=== PATIENT | male | born 1970 | race Caucasian/White ===

== ENCOUNTER 2016-12-01 19:06 | Inpatient (IN) | payer SELFPAY ==
[2016-12-01] VITALS (7 sets, daily range): BP systolic 113–144; BP diastolic 71–87; PULSE 66–86; RESP 18–20; TEMP 98.3–98.9; O2SAT 97–98
[~2016-12-01] VITALS: Ht 172.7 cm; Wt 74.4 kg
[~2016-12-01 19:06] MED LIST: METH40TA PO; PROM25TA5 PO
[2016-12-01] MEDS ORDERED: FDGARD (19:46)
[2016-12-01] MEDS ORDERED: CLON1 PO (19:46)
[2016-12-01] MEDS ORDERED: SODIUM CHLORIDE 0.9% FLUSH 5 ML FLUSH IVF PRN ×2 (20:00→23:45)
[2016-12-01] MEDS ORDERED: SODIUM CHLOR 0.9% 1000 ML INJ 1,000 ML IV SCH (20:00)
[2016-12-01] MEDS ORDERED: PANTOPRAZOLE SODIUM 40 MG VIAL IVP ONE (20:00)
[2016-12-01] MEDS ORDERED: ONDANSETRON HCL 4 MG/2 ML VIAL IVP ONE (20:00)
--- NOTE | 2016-12-01 20:11 | PD ---
HPI Chief Complaint: GI Complaint Time Seen by Provider: 20:00 Travel History International Travel<30 days: No Contact w/Intl Traveler<30days: No Traveled to known affect area: No History of Present Illness HPI 46-year-old male presents to the emergency department by private transportation for complaint of abdominal pain with nausea and vomiting and occasional diarrhea 3 days. Patient's had some objective fever and chills. Patient's had intermittent shortness of breath. Patient states she's been intolerant of oral intake with inability to eat or drink without vomiting. Patient estimates approximately 13 palate loss over the past 2 weeks. Patient's had similar issues on and off for the past one year and was last seen here September 2016. 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 Patient has been treated in the past partially 2 years ago for C. difficile infection. Patient denies alcohol use or tobacco use. Abdominal pain as epigastric and right upper quadrant. PFSH Past Medical History Narrative Medical Colitis tobacco use substance use nursing notes reviewed Gastrointestinal Disorders: Yes GERD: Yes Musculoskeletal: Yes (BACK, LEFT SHOULDER PAIN) Immunizations Current: No Tetanus Vaccination: Unknown Influenza Vaccination: No Social History Alcohol Use: No Tobacco Use: Yes (11/16 PPD) Substance Use: Yes (HX PAIN PILL ABUSE, SMOKES MARIJUANA) Allergies-Medications (Allergen,Severity, Reaction): Coded Allergies: No Known Allergies (Unverified , 12/01/16) Reported Meds & Prescriptions Reported Meds & Active Scripts Active Reported [FDgard] Klonopin (Clonazepam) 1 Mg Tab 1 Mg PO BID Review of Systems Except as stated in HPI: all other systems reviewed are Neg Physical Exam Narrative GENERAL: Well-developed well-nourished male in no acute distress no respiratory distress SKIN: Warm and dry. HEAD: Normocephalic. EYES: No scleral icterus. No injection or drainage. NECK: Supple, trachea midline. No JVD or lymphadenopathy. CARDIOVASCULAR: Regular rate and rhythm without murmurs, gallops, or rubs. RESPIRATORY: Breath sounds equal bilaterally. No accessory muscle use. GASTROINTESTINAL: Abdomen soft, epigastric tenderness to direct palpation without guarding rebound or mass, nondistended. MUSCULOSKELETAL: No cyanosis, or edema. BACK: Nontender without obvious deformity. No CVA tenderness. Data Data Last Documented VS Vital Signs Date Time Temp Pulse Resp B/P Pulse Ox O2 Delivery O2 Flow Rate FiO2 12/01/16 23:05 68 20 113/73 97 Room Air 12/01/16 22:41 98.9 Orders Complete Blood Count With Diff (12/01/16 20:00) Comprehensive Metabolic Panel (12/01/16 20:00) Lipase (12/01/16 20:00) Urinalysis - C+S If Indicated (12/01/16 20:00) Ct Abd/Pel W Iv Contrast(Rout) (12/01/16 20:00) Iv Access Insert/Monitor (12/01/16 20:00) Ecg Monitoring (12/01/16 20:00) Oximetry (12/01/16 20:00) Ondansetron Inj (Zofran Inj) (12/01/16 20:00) Pantoprazole Inj (Protonix Inj) (12/01/16 20:00) Sodium Chlor 0.9% 1000 Ml Inj (Ns 1000 M (12/01/16 20:00) Sodium Chloride 0.9% Flush (Ns Flush) (12/01/16 20:00) Chest, Single Ap (12/01/16 20:00) NPO (12/01/16 20:00) Troponin I (12/01/16 20:00) Oral Contrast - Adult (12/01/16 20:07) Diatrizoate Liq ( Gastroview Liq) (12/01/16 20:27) Sodium Chlor 0.9% 1000 Ml Inj (Ns 1000 M (12/01/16 21:00) Ondansetron Inj (Zofran Inj) (12/01/16 21:00) Morphine Inj (Morphine Inj) (12/01/16 21:00) Electrocardiogram (12/01/16 19:36) Iohexol 350 Inj (Omnipaque 350 Inj) (12/01/16 22:18) Admit To Inpatient (12/01/16 ) Vital Signs (Adult) Q4H (12/01/16 23:30) Activity Oob Ad Belinda (12/01/16 23:30) Intake + Output ANIYA.QSHIFT (12/01/16 23:30) Diet Npo (12/02/16 Breakfast) Sodium Chlor 0.9% 1000 Ml Inj (Ns 1000 M (12/01/16 23:30) Sodium Chloride 0.9% Flush (Ns Flush) (12/01/16 23:30) Sodium Chloride 0.9% Flush (Ns Flush) (12/02/16 09:00) Ondansetron Inj (Zofran Inj) (12/01/16 23:30) Temazepam (Restoril) (12/01/16 23:30) Comprehensive Metabolic Panel (12/02/16 06:00) Complete Blood Count With Diff (12/02/16 06:00) Scd Bilateral/Knee High ANIYA.BID (12/01/16 23:30) Naloxone Inj (Narcan Inj) (12/01/16 23:30) Consult Gastroenterology (12/01/16 23:34) Admit Order (Ed Use Only) (12/01/16 ) ^ Saline Lock (12/01/16 23:35) Resp Oxygen Greg C Titrat 1-4 L (12/01/16 ) ^ Notify Dr: Other (12/01/16 23:35) Sodium Chloride 0.9% Flush (Ns Flush) (12/02/16 09:00) Sodium Chloride 0.9% Flush (Ns Flush) (12/01/16 23:45) Labs Laboratory Tests Test 12/01/16 20:05 White Blood Count 11.6 TH/MM3 Red Blood Count 5.09 MIL/MM3 Hemoglobin 15.1 GM/DL Hematocrit 44.8 % Mean Corpuscular Volume 87.9 FL Mean Corpuscular Hemoglobin 29.7 PG Mean Corpuscular Hemoglobin 33.8 % Concent Red Cell Distribution Width 12.2 % Platelet Count 200 TH/MM3 Mean Platelet Volume 9.7 FL Neutrophils (%) (Auto) 69.9 % Lymphocytes (%) (Auto) 19.8 % Monocytes (%) (Auto) 9.1 % Eosinophils (%) (Auto) 0.4 % Basophils (%) (Auto) 0.8 % Neutrophils # (Auto) 8.1 TH/MM3 Lymphocytes # (Auto) 2.3 TH/MM3 Monocytes # (Auto) 1.1 TH/MM3 Eosinophils # (Auto) 0.0 TH/MM3 Basophils # (Auto) 0.1 TH/MM3 CBC Comment DIFF FINAL Differential Comment Urine Color YELLOW Urine Turbidity CLEAR Urine pH 6.0 Urine Specific [place] 1.010 Urine Protein NEG mg/dL Urine Glucose (UA) NEG mg/dL Urine Ketones NEG mg/dL Urine Occult Blood TRACE Urine Nitrite NEG Urine Bilirubin NEG Urine Leukocyte Esterase NEG Urine RBC 3-5 /hpf Urine WBC 0-2 /hpf Urine Squamous Epithelial 0-5 /hpf Cells Urine Bacteria NONE /hpf Microscopic Urinalysis Comment CULT NOT INDICATED Sodium Level 140 MEQ/L Potassium Level 3.8 MEQ/L Chloride Level 103 MEQ/L Carbon Dioxide Level 29.9 MEQ/L Anion Gap 7 MEQ/L Blood Urea Nitrogen 15 MG/DL Creatinine 0.75 MG/DL Estimat Glomerular Filtration 113 ML/MIN Rate Random Glucose 96 MG/DL Calcium Level 8.8 MG/DL Total Bilirubin 0.7 MG/DL Aspartate Amino Transf 25 U/L (AST/SGOT) Alanine Aminotransferase 47 U/L (ALT/SGPT) Alkaline Phosphatase 108 U/L Troponin I LESS THAN 0.02 NG/ML Total Protein 7.4 GM/DL Albumin 3.6 GM/DL Lipase 96 U/L [facility] Medical Decision Making Medical Screen Exam Complete: Yes Emergency Medical Condition: Yes Medical Record Reviewed: Yes Interpretation(s) EKG: Normal sinus rhythm rate 83 left axis deviation no acute ST elevation injury pattern or ectopy noted Laboratory Tests Test 12/01/16 20:05 White Blood Count 11.6 TH/MM3 Red Blood Count 5.09 MIL/MM3 Hemoglobin 15.1 GM/DL Hematocrit 44.8 % Mean Corpuscular Volume 87.9 FL Mean Corpuscular Hemoglobin 29.7 PG Mean Corpuscular Hemoglobin 33.8 % Concent Red Cell Distribution Width 12.2 % Platelet Count 200 TH/MM3 Mean Platelet Volume 9.7 FL Neutrophils (%) (Auto) 69.9 % Lymphocytes (%) (Auto) 19.8 % Monocytes (%) (Auto) 9.1 % Eosinophils (%) (Auto) 0.4 % Basophils (%) (Auto) 0.8 % Neutrophils # (Auto) 8.1 TH/MM3 Lymphocytes # (Auto) 2.3 TH/MM3 Monocytes # (Auto) 1.1 TH/MM3 Eosinophils # (Auto) 0.0 TH/MM3 Basophils # (Auto) 0.1 TH/MM3 CBC Comment DIFF FINAL Differential Comment Urine Color YELLOW Urine Turbidity CLEAR Urine pH 6.0 Urine Specific [place] 1.010 Urine Protein NEG mg/dL Urine Glucose (UA) NEG mg/dL Urine Ketones NEG mg/dL Urine Occult Blood TRACE Urine Nitrite NEG Urine Bilirubin NEG Urine Leukocyte Esterase NEG Urine RBC 3-5 /hpf Urine WBC 0-2 /hpf Urine Squamous Epithelial 0-5 /hpf Cells Urine Bacteria NONE /hpf Microscopic Urinalysis Comment CULT NOT INDICATED Sodium Level 140 MEQ/L Potassium Level 3.8 MEQ/L Chloride Level 103 MEQ/L Carbon Dioxide Level 29.9 MEQ/L Anion Gap 7 MEQ/L Blood Urea Nitrogen 15 MG/DL Creatinine 0.75 MG/DL Estimat Glomerular Filtration 113 ML/MIN Rate Random Glucose 96 MG/DL Calcium Level 8.8 MG/DL Total Bilirubin 0.7 MG/DL Aspartate Amino Transf 25 U/L (AST/SGOT) Alanine Aminotransferase 47 U/L (ALT/SGPT) Alkaline Phosphatase 108 U/L Troponin I LESS THAN 0.02 NG/ML Total Protein 7.4 GM/DL Albumin 3.6 GM/DL Lipase 96 U/L Last Impressions Chest X-Ray 12/01/161999 Signed Impressions: Service Date/Time: November 20:13 - CONCLUSION: No evidence of acute cardiopulmonary disease. Vik Bartlett MD Abdomen/Pelvis CT 12/01/161999 Signed Impressions: Service Date/Time: November 22:05 - CONCLUSION: 1. Distended common bile duct and with questionable stones in the distal duct and also in the gallbladder. The nothing by CT to suggest acute cholecystitis. Right upper quadrant ultrasound recommended. 2. No other acute abnormality demonstrated. Vik Bartlett MD Differential Diagnosis Abdominal pain peptic ulcer disease biliary colic choledocholithiasis pancreatitis colitis esophageal spasm esophageal stricture malignancy ACS Narrative Course IV access obtained specimens collected and sent for resulting Patient administered IV fluids IV Zofran and IV Protonix Patient continues to complain of nausea with dry heaves and abdominal pain additional Zofran IV fluids administered as well as morphine 2 mg IV Patient resting comfortably waiting for imaging results; labs all normal; patient's abdomen was tender CT abdomen and pelvis is remarkable for dilated common duct with concern for retained stone patient has normal lab values but patient has had ongoing symptoms since at least September with estimated 13 pound weight loss in the past 2 weeks due to inability to tolerate by mouth intake secondary to exacerbation of pain and vomiting. Patient's case discussed with on-call GI recommends patient be transferred to [facility] to medicine service with plan for possible ERCP in a.m. case discussed with on-call [facility] Bonny Peng except for admission patient is aware of plan and is agreeable to be transferred to [facility] Physician Communication Physician Communication discussed with Dr Steward --admit to medicine with GI consult for ERCP; discussed with [facility] service, Dr Mcnamara accepts for admission to [facility] Diagnosis Primary Impression: Choledocholithiasis Soniya Valverde MD Dec 01, 2016 20:11
[2016-12-01 20:19] LABS: BLOOD, URINE TRACE (NEG); GLUCOSE,URINE NEG (NEG); KETONE, URINE NEG (NEG); NITRITE,URINE NEG (NEG)
[2016-12-01 20:20] LABS: AUTOMATED NEUTROPHIL # 8.1 TH/MM3 (1.8-7.7); BASOPHIL # 0.1 TH/MM3 (0-0.2); BASOPHIL % 0.8 % (0.0-2.0); EOSINOPHIL % 0.4 % (0.0-4.0); HEMATOCRIT 44.8 % (39.0-51.0); HEMO FLAGS DIFF FINAL; LYMPH % 19.8 % (9.0-44.0); LYMPHOCYTE # 2.3 TH/MM3 (1.0-4.8); MEAN CELL VOLUME 87.9 FL (80.0-100.0); MEAN CORPUSCULAR HEMOGLOBIN 29.7 PG (27.0-34.0); MEAN CORPUSCULAR HGB CONC 33.8 % (32.0-36.0); MONO % 9.1 % (0.0-8.0); NEUT % 69.9 % (16.0-70.0); PLATELET COUNT 200 TH/MM3 (150-450); RED BLOOD COUNT 5.09 MIL/MM3 (4.50-5.90); RED CELL DISTRIBUTION WIDTH 12.2 % (11.6-17.2); WHITE BLOOD COUNT 11.6 TH/MM3 (4.0-11.0)
[2016-12-01 20:24] LABS: COMMENT (UR) CULT NOT INDICATED; CULTURE IF INDICATED CULT NOT INDICATED; SQUAMOUS EPITHELIAL CELL URINE 0-5 /hpf (0-5); URINE COLOR YELLOW (YELLW/STRAW); WBC, URINE 0-2 /hpf (0-5)
[2016-12-01] MEDS ORDERED: DIATRIZOATE MEGLUM/DIATRIZOATE SOD 9 ML CUP ONE (20:27)
[2016-12-01 20:28] LABS: CHLORIDE 103 MEQ/L (98-107); POTASSIUM 3.8 MEQ/L (3.5-5.1); SODIUM (NA) 140 MEQ/L (136-145)
[2016-12-01 20:32] LABS: ANION GAP 7 MEQ/L (5-15); BICARBONATE 29.9 MEQ/L (21.0-32.0); BLOOD UREA NITROGEN 15 MG/DL (7-18)
[2016-12-01 20:34] LABS: ALT (GPT) 47 U/L (12-78); AST (GOT) 25 U/L (15-37)
[2016-12-01 20:35] LABS: GLOMERULAR FILTRATION RATE 113 ML/MIN (>89)
[2016-12-01 20:36] LABS: TOTAL BILIRUBIN ADULT 0.7 MG/DL (0.2-1.0)
[2016-12-01 20:37] LABS: ALKALINE PHOSPHATASE 108 U/L (45-117)
--- NOTE | 2016-12-01 20:37 | RADHPO ---
EXAM DATE/TIME: 12/01/2016 20:13 [facility] COMPARISON: No previous studies available for comparison. INDICATIONS : Patient states chest tightness. MEDICAL HISTORY : None. SURGICAL HISTORY : None. ENCOUNTER: Initial ACUITY: 1 day PAIN SCORE: 4/10 LOCATION: Bilateral chest FINDINGS: A single view of the chest demonstrates the lungs to be symmetrically aerated without evidence of mas s, infiltrate or effusion. The cardiomediastinal contours are unremarkable. Osseous structures are intact. CONCLUSION: No evidence of acute cardiopulmonary disease. Vik Bartlett MD on December 01, 2016 at 20:35 Board Certified Radiologist. This report was verified electronically.
[2016-12-01] MEDS ORDERED: MORPHINE SULFATE 4 MG/ML INJ IV PUSH ONE (21:00)
[2016-12-01] MEDS ORDERED: SODIUM CHLOR 0.9% 1000 ML INJ 1,000 ML IV ONE (21:00)
[2016-12-01] MEDS ORDERED: ONDANSETRON HCL 4 MG/2 ML VIAL IV PUSH ONE (21:00)
[2016-12-01] MEDS ORDERED: IOHEXOL 350 MG/ML 10 ML VIAL (for RAD DIAG) IV ONE (22:18)
--- NOTE | 2016-12-01 22:40 | RADHPO ---
EXAM DATE/TIME: 12/01/2016 22:05 [facility] COMPARISON: No previous studies available for comparison. INDICATIONS : Epigastric and right upper quadrant pain. IV CONTRAST: 100 cc Omnipaque 350 (iohexol) IV ORAL CONTRAST: Prescribed oral contrast ingested. RADIATION DOSE: 8.16 CTDIvol (mGy) MEDICAL HISTORY : Gastroesophageal reflux disease. SURGICAL HISTORY : None. ENCOUNTER: Initial ACUITY: 3 days PAIN SCALE: 8/10 LOCATION: Right upper quadrant TECHNIQUE: Volumetric scanning of the abdomen and pelvis was performed. Using automated exposure control and ad justment of the mA and/or kV according to patient size, radiation dose was kept as low as reasonably achievable to obtain optimal diagnostic quality images. FINDINGS: Slightly increased density seen in the gallbladder near the neck. Prominent caliber common bile duct, measures about 13 mm just proximal to the pancreatic head and roughly 9 mm within the pancreatic hea d. There is questionable increased density within the duct just upstream of the ampulla, series 2 jeremiah ge [id number]. This may represent a distal duct stone. I don't see intrahepatic biliary distention. Liver is slightly fatty infiltrated without a focal hepatic lesion. Spleen, pancreas, adrenal glands and kidneys are are acutely within normal limits. Small cysts in bot h kidneys. No obstruction or acute inflammatory changes are seen of the GI tract. No lymphadenopathy. No free fluid. The appendix is well-visualized, normal. CONCLUSION: 1. Distended common bile duct and with questionable stones in the distal duct and also in the gallbla dder. The nothing by CT to suggest acute cholecystitis. Right upper quadrant ultrasound recommended. 2. No other acute abnormality demonstrated. Vik Bartlett MD on December 01, 2016 at 22:34 Board Certified Radiologist. This report was verified electronically.
[2016-12-01] MEDS: SODIUM CHLOR 0.9% 1000 ML INJ 1,000 ML IV SCH (23:30)
[2016-12-01] MEDS ORDERED: TEMAZEPAM 15 MG CAP PO PRN (23:30)
[2016-12-01] MEDS ORDERED: NALOXONE HCL 0.4 MG/ML AMP IV PRN (23:30)
[2016-12-02] VITALS (7 sets, daily range): BP systolic 109–174; BP diastolic 64–88; PULSE 52–68; RESP 16–21; TEMP 97.4–98.9; O2SAT 93–98
[2016-12-02] MEDS: ONDANSETRON HCL 4 MG/2 ML VIAL IVP PRN ×3 (05:13→20:26)
[2016-12-02] MEDS: SODIUM CHLOR 0.9% 1000 ML INJ 1,000 ML IV SCH ×2 (05:18→19:30)
[2016-12-02] MEDS ORDERED: MORPHINE SULFATE 4 MG/ML INJ IV PUSH PRN (06:15)
[2016-12-02] MEDS ORDERED: HYDROmorphone HCL PF 1 MG/ML VIAL IV PUSH PRN (08:00)
--- NOTE | 2016-12-02 08:05 | HHI.HP ---
[facility] No Primary Care Physician Admission Diagnosis choledocholithiasis Diagnoses: (1) Choledocholithiasis Diagnosis: Principal (2) Abdominal pain Diagnosis: Principal Chief Complaint: abdominal pain Travel History International Travel<30 Days: No Contact w/Intl Traveler <30 Da: No Traveled to Known Affected Are: No History of Present Illness patient is a 46 y/o male with history of colitis in the past presented to ER with abdominal pain. he says that he's had this pain for the past few months. pain is more or less generalized . he says that the pain started to get worse few days ago. pain is associated with nausea and vomiting. he says that he had some fever and chills at home. the pain didn't improve as much with the Morphine that he earlier received. Review of Systems Constitutional: COMPLAINS OF: Fever, Chills, Night Sweats, DENIES: Weight loss Eyes: DENIES: Blurred vision, Diplopia, Vision loss, Double Vision Ears, nose, mouth, throat: DENIES: Tinnitus, Vertigo, Throat pain, Epistaxis Respiratory: DENIES: Apneas, Cough, Snoring, Wheezing, Hemoptysis, Sputum production, Shortness of breath Cardiovascular: DENIES: Chest pain, Palpitations, Syncope, Dyspnea on Exertion , PND, Lower Extremity Edema, Orthopnea, Claudication Gastrointestinal: COMPLAINS OF: Abdominal pain, Nausea, Vomiting, DENIES: Black stools, Bloody stools, Constipation, Diarrhea, Difficulty Swallowing, Anorexia Genitourinary: DENIES: Urinary frequency, Urgency, Hematuria, Dysuria Musculoskeletal: DENIES: Joint pain, Muscle aches, Stiffness, Joint Swelling Integumentary: DENIES: Rash Neurologic: DENIES: Abnormal gait, Headache, Localized weakness, Paresthesias, Seizures, Speech Problems, Tremor, Poor Balance Psychiatric: DENIES: Anxiety, Confusion, Mood changes, Depression, Hallucinations, Agitation, Suicidal Ideation, Homicidal Ideation, Delusions Past Family Social History Past Medical History colitis Past Surgical History surgery on the right leg. Reported Medications Klonopin Allergies: Coded Allergies: No Known Allergies (Unverified , 12/02/16) Active Ordered Medications Current Medications Ondansetron HCl (Zofran Inj) 4 mg ONCE ONCE IVP Last administered on 20:19; Start 12/01/16 at 20:00; Stop 12/01/16 at 20:04; Status DC Pantoprazole Sodium 40 mg 40 mg ONCE ONCE IVP Last administered on 12/01/16 20:19; Start 12/01/16 at 20:00; Stop 12/01/16 at 20:04; Status DC Sodium Chloride (NS 1000 ml Inj) 1,000 ml @ 125 mls/hr Q8H IV Last administered on 12/01/16 20:19; Start 12/01/16 at 20:00; Stop 12/02/16 at 03:59 ; Status DC IV Flush (NS Flush) 2 ml UNSCH PRN IVF FLUSH AFTER USING IV ACCESS; Start 12/01 at 20:00; Stop 12/01/16 at 23:37; Status DC Diatrizoate Meglum/ Diatrizoate Sod 18 ml 18 ml STK-MED ONCE .ROUTE Last administered on 12/01/16 20:44; Start 12/01/16 at 20:27; Stop 12/01/16 at 20:28 ; Status DC Sodium Chloride (NS 1000 ml Inj) 1,000 ml @ 999 mls/hr BOLUS ONCE IV Last administered on 12/01/16 21:00; Start 12/01/16 at 21:00; Stop 12/01/16 at 22:00 ; Status DC Ondansetron HCl (Zofran Inj) 4 mg ONCE ONCE IV PUSH Last administered on 21:05; Start 12/01/16 at 21:00; Stop 12/01/16 at 21:01; Status DC Morphine Sulfate (Morphine Inj) 2 mg ONCE ONCE IV PUSH Last administered on 21:05; Start 12/01/16 at 21:00; Stop 12/01/16 at 21:01; Status DC Iohexol 100 ml 100 ml STK-MED ONCE IV Last administered on 12/01/16 22:18; Start 12/01/16 at 22:18; Stop 12/01/16 at 22:19; Status DC Sodium Chloride (NS 1000 ml Inj) 1,000 ml @ 100 mls/hr Q10H IV Last administered on 12/02/16 05:18; Start 12/01/16 at 23:30 IV Flush (NS Flush) 2 ml UNSCH PRN FLUSH FLUSH AFTER USING IV ACCESS; Start at 23:30 IV Flush (NS Flush) 2 ml BID FLUSH ; Start 12/02/16 at 09:00 Ondansetron HCl (Zofran Inj) 4 mg Q6H PRN IVP NAUSEA OR VOMITING Last administered on 12/02/16 05:13; Start 12/01/16 at 23:30 Temazepam (Restoril) 15 mg HS PRN PO INSOMNIA Last administered on 12/01/16 23 :53; Start 12/01/16 at 23:30 Naloxone HCl (Narcan Inj) 0.4 mg UNSCH PRN IV SEE LABEL COMMENTS; Start at 23:30 IV Flush (NS Flush) 2 ml BID IVF ; Start 12/02/16 at 09:00; Stop 12/02/16 at 09: 00; Status DC IV Flush (NS Flush) 2 ml UNSCH PRN IVF FLUSH AFTER USING IV ACCESS; Start 12/01 at 23:45; Stop 12/01/16 at 23:58; Status DC Morphine Sulfate (Morphine Inj) 2 mg Q3H PRN IV PUSH PAIN GREATER THAN 5 Last administered on 12/02/16 06:15; Start 12/02/16 at 06:15 Family History stroke in mother/ heart attack in father. Social History smokes marijuana and cigarettes- doesn't drink. Physical Exam Vital Signs Vital Signs Date Time Temp Pulse Resp B/P Pulse Ox O2 Delivery O2 Flow Rate FiO2 12/02/16 06:18 12 12/02/16 01:48 98.7 57 21 109/75 93 12/02/16 01:14 98.9 113 20 119/64 98 12/02/16 01:00 64 12/01/16 23:05 68 20 113/73 97 Room Air 12/01/16 22:41 98.9 12/01/16 21:44 66 20 129/76 98 12/01/16 21:10 20 12/01/16 20:44 68 20 141/71 98 12/01/16 20:00 70 20 144/75 97 12/01/16 19:50 20 12/01/16 19:42 84 20 144/75 97 12/01/16 19:38 12/01/16 19:23 98.3 86 18 123/87 97 Room Air Physical Exam GENERAL: This is a well-nourished, well-developed patient, in no apparent distress. SKIN: No rashes, ecchymoses or lesions. Cool and dry. HEAD: Atraumatic. Normocephalic. No temporal or scalp tenderness. EYES: Pupils equal round and reactive. Extraocular motions intact. No scleral icterus. No injection or drainage. ENT: Nose without bleeding, purulent drainage or septal hematoma. Throat without erythema, tonsillar hypertrophy or exudate. Uvula midline. Airway patent. NECK: Trachea midline. No JVD or lymphadenopathy. Supple, nontender, no meningeal signs. CARDIOVASCULAR: Regular rate and rhythm without murmurs, gallops, or rubs. RESPIRATORY: Clear to auscultation. Breath sounds equal bilaterally. No wheezes , rales, or rhonchi. GASTROINTESTINAL: Abdomen soft, mild generalized tenderness, nondistended. No hepato-splenomegaly, or palpable masses. No guarding. MUSCULOSKELETAL: Extremities without clubbing, cyanosis, or edema. No joint tenderness, effusion, or edema noted. No calf tenderness. Negative Homans sign bilaterally. NEUROLOGICAL: Awake and alert. Cranial nerves II through XII intact. Motor and sensory grossly within normal limits. Five out of 5 muscle strength in all muscle groups. Normal speech. Laboratory Laboratory Tests Test 12/01/16 20:05 White Blood Count 11.6 Red Blood Count 5.09 Hemoglobin 15.1 Hematocrit 44.8 Mean Corpuscular Volume 87.9 Mean Corpuscular Hemoglobin 29.7 Mean Corpuscular Hemoglobin 33.8 Concent Red Cell Distribution Width 12.2 Platelet Count 200 Mean Platelet Volume 9.7 Neutrophils (%) (Auto) 69.9 Lymphocytes (%) (Auto) 19.8 Monocytes (%) (Auto) 9.1 Eosinophils (%) (Auto) 0.4 Basophils (%) (Auto) 0.8 Neutrophils # (Auto) 8.1 Lymphocytes # (Auto) 2.3 Monocytes # (Auto) 1.1 Eosinophils # (Auto) 0.0 Basophils # (Auto) 0.1 CBC Comment DIFF FINAL Differential Comment Urine Color YELLOW Urine Turbidity CLEAR Urine pH 6.0 Urine Specific [place] 1.010 Urine Protein NEG Urine Glucose (UA) NEG Urine Ketones NEG Urine Occult Blood TRACE Urine Nitrite NEG Urine Bilirubin NEG Urine Leukocyte Esterase NEG Urine RBC 3-5 Urine WBC 0-2 Urine Squamous Epithelial 0-5 Cells Urine Bacteria NONE Microscopic Urinalysis Comment CULT NOT INDICATED Sodium Level 140 Potassium Level 3.8 Chloride Level 103 Carbon Dioxide Level 29.9 Anion Gap 7 Blood Urea Nitrogen 15 Creatinine 0.75 Estimat Glomerular Filtration 113 Rate Random Glucose 96 Calcium Level 8.8 Total Bilirubin 0.7 Aspartate Amino Transf 25 (AST/SGOT) Alanine Aminotransferase 47 (ALT/SGPT) Alkaline Phosphatase 108 Troponin I LESS THAN 0.02 Total Protein 7.4 Albumin 3.6 Lipase 96 Result Diagram: 12/01/16200412/01/162004 Imaging Last Impressions Chest X-Ray 12/01/161999 Signed Impressions: Service Date/Time: November 20:13 - CONCLUSION: No evidence of acute cardiopulmonary disease. Vik Bartlett MD Abdomen/Pelvis CT 12/01/161999 Signed Impressions: Service Date/Time: November 22:05 - CONCLUSION: 1. Distended common bile duct and with questionable stones in the distal duct and also in the gallbladder. The nothing by CT to suggest acute cholecystitis. Right upper quadrant ultrasound recommended. 2. No other acute abnormality demonstrated. Vik Bartlett MD Assessment and Plan Assessment and Plan A/P - possible choledocholithiasis NPO for now and continue with IV fluid, pain control and antiemetics- will check GB sonogram- GI consulted. Discussed Condition With the patient and RN. Physician Certification 2 Midnight Certification Type: Admission for Inpatient Services Order for Inpatient Services The services are ordered in accordance with Medicare regulations or non- Medicare payer requirements, as applicable. In the case of services not specified as inpatient-only, they are appropriately provided as inpatient services in accordance with the 2-midnight benchmark. Estimated LOS (days): 2 days is the estimated time the patient will need to remain in the hospital, assuming treatment plan goals are met and no additional complications. Post-Hospital Plan: Home Problem Qualifiers (1) Abdominal pain: Qualified Code: R10.84 - Generalized abdominal pain Matteo Ramos MD Dec 02, 2016 08:05
[2016-12-02] MEDS ORDERED: SODIUM CHLORIDE 0.9% FLUSH 5 ML FLUSH IVF SCH (09:00)
[2016-12-02] MEDS ORDERED: HYDROmorphone HCL PF 1 MG/ML VIAL IV PUSH ONE (09:00)
--- NOTE | 2016-12-02 09:09 | PD.CONS ---
HPI History of Present Illness This is a 46 year old male patient who came to the ER for evaluation of abdominal pain. He reports that he has been having epigastric pain, odynophagia , reflux for the past year and this has progressively been getting worse over the past 5 months. He reports that over the past 5 months, whenever he goes to initially eat or drink anything, the food and liquids will get stuck in his lower esophagus/epigastric area and he will have a burning pain when he swallows. He will have to take several swallows and then the food will pass and he will be able to eat and drink without difficulty. He has frequent reflux and belching, but denies any heartburn. He has been taking Pepto-Bismol , Zantac, Imodium, Mylanta without results. He reports the only thing that has helped is FD Guard. He has lost 17 lbs over the past 3 weeks. He denies any jaundice/fever/chills. He reports that he recently had a formed black stool followed by 2 loose stools with brown stool mixed with black stool, but states he was taking Pepto-Bismol at the time. (Demetria Humphries) PFSH Past Medical History Pilonidal cyst Past Surgical History Pilonidal cyst excision (Demetria Humphries) Coded Allergies: No Known Allergies (Unverified , 12/02/16) Medications Allergies Coded Allergies Type Severity Reaction Last Updated Verified No Known Allergies 12/02/16 No Active Scripts Medications Dose Route/Sig Days Date Category [FDgard] 12/01/16 Reported Klonopin (Clonazepam) 1 Mg Tab 1 Mg PO BID 12/01/16 Reported Family History MGM breast cancer, lived unitl 80's Mother had CVA, 64 Dad from [place] 60 Social History Smokes < 1ppd Marijuana use (Demetria Humphries) Review of Systems Constitutional: COMPLAINS OF: Weight loss, DENIES: Fatigue, Fever, Chills Respiratory: COMPLAINS OF: Cough, DENIES: Shortness of breath Cardiovascular: DENIES: Chest pain Gastrointestinal: COMPLAINS OF: Abdominal pain, Black stools, Vomiting, Odynophagia, DENIES: Constipation, Diarrhea, Nausea, Heartburn (belching, odynodphagia) Musculoskeletal: DENIES: Joint pain, Back pain Hematologic/lymphatic: DENIES: Bruising Neurologic: DENIES: Headache Psychiatric: DENIES: Confusion (Demetria Humphries FOREIGN) GI Exam Vitals I&O Vital Signs Date Time Temp Pulse Resp B/P Pulse Ox O2 Delivery O2 Flow Rate FiO2 12/02/16 06:18 12 12/02/16 04:00 98.0 68 21 126/76 98 12/02/16 01:48 98.7 57 21 109/75 93 12/02/16 01:14 98.9 113 20 119/64 98 12/02/16 01:00 64 12/01/16 23:05 68 20 113/73 97 Room Air 12/01/16 22:41 98.9 12/01/16 21:44 66 20 129/76 98 12/01/16 21:10 20 12/01/16 20:44 68 20 141/71 98 12/01/16 20:00 70 20 144/75 97 12/01/16 19:50 20 12/01/16 19:42 84 20 144/75 97 12/01/16 19:38 12/01/16 19:23 98.3 86 18 123/87 97 Room Air I/O 12/01/16 12/01/16 12/01/16 12/02/16 12/02/16 12/02/16 07:00 15:00 23:00 07:00 15:00 23:00 Intake Total 1800 ml Output Total 700 ml Balance 1100 ml Intake IV Total 1800 ml Output Urine Total 700 ml # Voids 2 Imaging Last Impressions Chest X-Ray 12/01/161999 Signed Impressions: Service Date/Time: November 20:13 - CONCLUSION: No evidence of acute cardiopulmonary disease. Vik Bartlett MD Abdomen/Pelvis CT 12/01/161999 Signed Impressions: Service Date/Time: November 22:05 - CONCLUSION: 1. Distended common bile duct and with questionable stones in the distal duct and also in the gallbladder. The nothing by CT to suggest acute cholecystitis. Right upper quadrant ultrasound recommended. 2. No other acute abnormality demonstrated. Vik Bartlett MD Laboratory Test 12/01/16 20:05 White Blood Count 11.6 TH/MM3 Red Blood Count 5.09 MIL/MM3 Hemoglobin 15.1 GM/DL Hematocrit 44.8 % Mean Corpuscular Volume 87.9 FL Mean Corpuscular Hemoglobin 29.7 PG Mean Corpuscular Hemoglobin 33.8 % Concent Red Cell Distribution Width 12.2 % Platelet Count 200 TH/MM3 Mean Platelet Volume 9.7 FL Neutrophils (%) (Auto) 69.9 % Lymphocytes (%) (Auto) 19.8 % Monocytes (%) (Auto) 9.1 % Eosinophils (%) (Auto) 0.4 % Basophils (%) (Auto) 0.8 % Neutrophils # (Auto) 8.1 TH/MM3 Lymphocytes # (Auto) 2.3 TH/MM3 Monocytes # (Auto) 1.1 TH/MM3 Eosinophils # (Auto) 0.0 TH/MM3 Basophils # (Auto) 0.1 TH/MM3 CBC Comment DIFF FINAL Differential Comment Urine Color YELLOW Urine Turbidity CLEAR Urine pH 6.0 Urine Specific [place] 1.010 Urine Protein NEG mg/dL Urine Glucose (UA) NEG mg/dL Urine Ketones NEG mg/dL Urine Occult Blood TRACE Urine Nitrite NEG Urine Bilirubin NEG Urine Leukocyte Esterase NEG Urine RBC 3-5 /hpf Urine WBC 0-2 /hpf Urine Squamous Epithelial 0-5 /hpf Cells Urine Bacteria NONE /hpf Microscopic Urinalysis Comment CULT NOT INDICATED Sodium Level 140 MEQ/L Potassium Level 3.8 MEQ/L Chloride Level 103 MEQ/L Carbon Dioxide Level 29.9 MEQ/L Anion Gap 7 MEQ/L Blood Urea Nitrogen 15 MG/DL Creatinine 0.75 MG/DL Estimat Glomerular Filtration 113 ML/MIN Rate Random Glucose 96 MG/DL Calcium Level 8.8 MG/DL Total Bilirubin 0.7 MG/DL Aspartate Amino Transf 25 U/L (AST/SGOT) Alanine Aminotransferase 47 U/L (ALT/SGPT) Alkaline Phosphatase 108 U/L Troponin I LESS THAN 0.02 NG/ML Total Protein 7.4 GM/DL Albumin 3.6 GM/DL Lipase 96 U/L Physical Examination HEENT: Normocephalic; atraumatic; no jaundice. Throat is clear. NECK: Neck is supple, no JVD, no lymphadenopathy. CHEST: CTA CARDIAC: RRR ABDOMEN: Soft, nondistended, nontender; no hepatosplenomegaly; bowel sounds are present in all four quadrants. EXTREMITIES: No clubbing, cyanosis, or edema. SKIN: Normal; no rash; no jaundice. [facility]NA HOSPICE: No focal deficits; alert and oriented times three. (Demetria Humphries) Assessment and Plan Plan ASSESSMENT: - Cholelithiasis, Suspected Choledocholithiasis. Abdomen/Pelvis CT (12/01/16)--- --> 1. Distended common bile duct and with questionable stones in the distal duct and also in the gallbladder. The nothing by CT to suggest acute cholecystitis. Right upper quadrant ultrasound recommended. 2. No other acute abnormality demonstrated. RUQ US report pending, but CBD 9mm with stone in CBD per tech. Labs unremarkable. Will schedule for ERCP with possible sphincterotomy, possible stent placement today. - Epigastric pain, dysphagia, odynophagia. Symptoms x 1 year, worse over 5 months. C/O severe epigastric/lower esophageal pain and food/liquids getting caught with initial bite/swallow, states after this, he is able to eat without issues. Happens every time he goes to eat. Also with frequent epigastric burning, belching. Has tried Pepto-Bismol, Zantac, Imodium, Mylanta without results. He reports the only thing that has helped is FD Guard. - Abnormal weight loss, 14 lb weight loss over the past 3 months - Black stool. States he had a FORMED black stool followed by 2 loose brown stools mixed with black stool. He was taking Pepto-Bismol at that time. PLAN: - Plan for ercp with possible sphincterotomy, possible stent placement this am - Obtain consents - NPO - Protonix 40mg IV BID - CBC, CMP today - LFT in am - Supportive care - Further recommendations to follow based on results of above - Pt seen and examined by Dr. Ro and myself and this note is written on his behalf (Demetria Humphries) Physician Comments Seen and examined with Ms. Kristel CARRASQUILLO, reviewed U/s And CT reports. Suggestive of cbd stone, Lfts are normal. ERCP today. Surgical consultation. Thank you ( Darleen Ro MD) Demetria Humphries Dec 02, 2016 09:09 Darleen Ro MD Dec 02, 2016 16:20
--- NOTE | 2016-12-02 09:13 | RADRPT ---
EXAM DATE/TIME: 12/02/2016 08:23 [facility] COMPARISON: No previous studies available for comparison. INDICATIONS : Right upper quadrant pain. Evaluate common bile duct. MEDICAL HISTORY : Gastroesophageal reflux disease. Abdominal pain. Nausea. Vomiting. Substance use. SURGICAL HISTORY : Right leg surgery. ENCOUNTER: Initial ACUITY: 4-6 months PAIN SCORE: 8/10 LOCATION: Right upper quadrant MEASUREMENTS: LIVER: 15.6 cm length COMMON DUCT: 9 mm RIGHT KIDNEY: 12.2 x 5.7 x 4.8 cm FINDINGS: LIVER: The liver is echogenic without ductal dilatation. COMMON DUCT: Common duct isn't dilated to 9 mm. GALLBLADDER: Normal debris is present in the gallbladder without gallstones. PANCREAS: Obscured by bowel gas. RIGHT KIDNEY: 1 cm cyst right kidney. CONCLUSION: Debris in the gallbladder with dilated common duct. PT and Armaan Roman MD FACR on December 02, 2016 at 9:04 Board Certified Radiologist. This report was verified electronically.
[2016-12-02] MEDS: clonazePAM 1 MG TAB PO SCH ×2 (09:22→20:26)
[2016-12-02] MEDS: PANTOPRAZOLE SODIUM 40 MG VIAL IV PUSH SCH ×2 (09:29→20:26)
[2016-12-02] MEDS: SODIUM CHLORIDE 0.9% FLUSH 5 ML FLUSH FLUSH SCH ×2 (09:30→20:27)
[2016-12-02 09:46] LABS: AUTOMATED NEUTROPHIL # 6.3 TH/MM3 (1.8-7.7); BASOPHIL % 0.3 % (0.0-2.0); EOSINOPHIL % 0.4 % (0.0-4.0); HEMO FLAGS DIFF FINAL; LYMPH % 23.8 % (9.0-44.0); LYMPHOCYTE # 2.2 TH/MM3 (1.0-4.8); MEAN CELL VOLUME 88.8 FL (80.0-100.0); MEAN CORPUSCULAR HEMOGLOBIN 30.1 PG (27.0-34.0); MONO % 7.8 % (0.0-8.0); NEUT % 67.7 % (16.0-70.0); PLATELET COUNT 178 TH/MM3 (150-450); RED BLOOD COUNT 4.84 MIL/MM3 (4.50-5.90); WHITE BLOOD COUNT 9.3 TH/MM3 (4.0-11.0)
[2016-12-02 10:09] LABS: ALKALINE PHOSPHATASE 97 U/L (45-117); ALT (GPT) 43 U/L (12-78); ANION GAP 6 MEQ/L (5-15); AST (GOT) 22 U/L (15-37); BICARBONATE 29.2 MEQ/L (21.0-32.0); BLOOD UREA NITROGEN 11 MG/DL (7-18); CHLORIDE 106 MEQ/L (98-107); GLOMERULAR FILTRATION RATE 102 ML/MIN (>89); POTASSIUM 4.3 MEQ/L (3.5-5.1); SODIUM (NA) 141 MEQ/L (136-145); TOTAL BILIRUBIN ADULT 0.8 MG/DL (0.2-1.0)
[2016-12-02] MEDS ORDERED: PROPOFOL 200 MG/20 ML AMP IV ONE (12:23)
[2016-12-02] MEDS ORDERED: IOHEXOL 300 MG/ML 100 ML BTL (for Rad CT) OTHER ONE (12:25)
[2016-12-02] MEDS ORDERED: DO NOT ADM ANY ANTICOAGULANT DRUGS XX PRN (12:49)
[2016-12-02] MEDS ORDERED: *HYDROmorphone PF 1 MG VIAL PERIprocedural Use ONLY ONE (13:11)
--- NOTE | 2016-12-02 14:26 | RADRPT ---
EXAM DATE/TIME: 12/02/2016 12:33 [facility] COMPARISON: No previous studies available for comparison. INDICATIONS : Epigastric and right upper quadrant pain, possible obstruction. FLUORO TIME: 1.3 minutes IMAGE COUNT: 2 CONTRAST: Instilled by Ordering Physician MEDICAL HISTORY : Gastroesophageal reflux disease. SURGICAL HISTORY : None. ENCOUNTER: Subsequent ACUITY: 2 days PAIN SCORE: Non-responsive. LOCATION: Abdomen. FINDINGS: An ERCP was performed by the ordering physician. The images demonstrate a dilated common bile duct but no stones are identified. CONCLUSION: ERCP as above. Emanuel Hall MD on December 02, 2016 at 14:23 Board Certified Radiologist. This report was verified electronically.
[2016-12-02] MEDS: HYDROmorphone HCL PF 1 MG/ML VIAL IV PUSH PRN ×3 (16:40→23:45)
--- NOTE | 2016-12-02 17:03 | PD.CAR.PN ---
CVT Progress Note Subjective/Hospital Course: Patient seen full consult dictated Thanks J Objective: Vital Signs Date Time Temp Pulse Resp B/P Pulse Ox O2 Delivery O2 Flow Rate FiO2 12/02/16 13:16 98.0 53 16 148/95 96 Room Air 12/02/16 13:00 54 12 167/108 96 12/02/16 13:00 97.4 52 18 174/88 96 12/02/16 12:48 98.0 67 12 127/83 98 Nasal Cannula 2 12/02/16 11:00 97.5 57 19 119/72 96 12/02/16 10:19 16 12/02/16 06:18 12 12/02/16 04:00 98.0 68 21 126/76 98 12/02/16 01:48 98.7 57 21 109/75 93 12/02/16 01:14 98.9 113 20 119/64 98 12/02/16 01:00 64 12/01/16 23:05 68 20 113/73 97 Room Air 12/01/16 22:41 98.9 12/01/16 21:44 66 20 129/76 98 12/01/16 21:10 20 12/01/16 20:44 68 20 141/71 98 12/01/16 20:00 70 20 144/75 97 12/01/16 19:50 20 12/01/16 19:42 84 20 144/75 97 12/01/16 19:38 12/01/16 19:23 98.3 86 18 123/87 97 Room Air Labs: Laboratory Tests Test 12/02/16 09:14 White Blood Count 9.3 TH/MM3 (4.0-11.0) Red Blood Count 4.84 MIL/MM3 (4.50-5.90) Hemoglobin 14.6 GM/DL (13.0-17.0) Hematocrit 43.0 % (39.0-51.0) Mean Corpuscular Volume 88.8 FL (80.0-100.0) Mean Corpuscular Hemoglobin 30.1 PG (27.0-34.0) Mean Corpuscular Hemoglobin 34.0 % Concent (32.0-36.0) Red Cell Distribution Width 13.0 % (11.6-17.2) Platelet Count 178 TH/MM3 (150-450) Mean Platelet Volume 9.8 FL (7.0-11.0) Neutrophils (%) (Auto) 67.7 % (16.0-70.0) Lymphocytes (%) (Auto) 23.8 % (9.0-44.0) Monocytes (%) (Auto) 7.8 % (0.0-8.0) Eosinophils (%) (Auto) 0.4 % (0.0-4.0) Basophils (%) (Auto) 0.3 % (0.0-2.0) Neutrophils # (Auto) 6.3 TH/MM3 (1.8-7.7) Lymphocytes # (Auto) 2.2 TH/MM3 (1.0-4.8) Monocytes # (Auto) 0.7 TH/MM3 (0-0.9) Eosinophils # (Auto) 0.0 TH/MM3 (0-0.4) Basophils # (Auto) 0.0 TH/MM3 (0-0.2) CBC Comment DIFF FINAL Differential Comment Sodium Level 141 MEQ/L (136-145) Potassium Level 4.3 MEQ/L (3.5-5.1) Chloride Level 106 MEQ/L (98-107) Carbon Dioxide Level 29.2 MEQ/L (21.0-32.0) Anion Gap 6 MEQ/L (5-15) Blood Urea Nitrogen 11 MG/DL (7-18) Creatinine 0.82 MG/DL (0.60-1.30) Estimat Glomerular Filtration 102 ML/MIN Rate (>89) Random Glucose 99 MG/DL (74-106) Calcium Level 8.4 MG/DL (8.5-10.1) Total Bilirubin 0.8 MG/DL (0.2-1.0) Aspartate Amino Transf 22 U/L (15-37) (AST/SGOT) Alanine Aminotransferase 43 U/L (12-78) (ALT/SGPT) Alkaline Phosphatase 97 U/L (45-117) Total Protein 6.5 GM/DL (6.4-8.2) Albumin 3.5 GM/DL (3.4-5.0) Result Diagram: 12/02/16 0914 12/02/16 0914 Lalitha Amaral MD Dec 02, 2016 17:03
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
--- NOTE | 2016-12-02 21:30 | MB ---
cc: LALITHA HUI MD DATE OF CONSULTATION: 12/02/2016. REASON FOR CONSULTATION: Right upper quadrant pain, colicky pain, some fever and chills, belching and reflux. HISTORY OF PRESENT ILLNESS: This 46-year-old male presented to the emergency room with few months of abdominal pain. The patient states it is generalized, more so in the upper quadrants and no associated nausea or vomiting. The patient had some chills and fever at home and this did not improve. The patient states he is belching a lot and having reflux. He also states that food is sticking in his throat. The question arises as to the nature of his symptoms and possible cholecystitis or cholelithiasis causing this. PAST SURGICAL HISTORY: His past surgical history is that of a knee surgery. PAST MEDICAL HISTORY: Some sort of a colitis. MEDICATIONS: The patient is on: 1. Methadone. 2. Gabapentin. SOCIAL HISTORY: The patient smokes a pack a day and smokes pot. No drinking. The patient states that in the past he was addicted to narcotics and went to the methadone clinic. PHYSICAL EXAMINATION: GENERAL: The physical examination reveals a 46-year-old male in no acute distress. HEAD, EYES, EARS, NOSE, THROAT: Normocephalic. No trauma to the head. Pupils equal and reactive. Extraocular muscles intact. NECK: Bilateral carotid pulses. No bruits. CHEST: Bilateral breath sounds. HEART: Regular rhythm. ABDOMEN: Soft. Active bowel sounds. When I examined the patient, there was no rebound, no guarding, no masses, no tenderness. GROINS: His groins are normal. EXTREMITIES: Within normal limits with good proximal and distal pulses. No vascular deficit. BACK: Back is normal. NEUROLOGIC EXAMINATION: The patient is alert, oriented and intact. The patient appears to be somewhat hyper, speaking very rapidly and having very short attention span but otherwise doing okay. RECOMMENDATIONS: I reviewed laboratory and diagnostic procedures. The patient has had a battery of studies including ultrasound which showed perhaps some sludge. The abdomen and pelvis CT essentially looks normal except for the dilated common bile duct to about 13 mm and some sludge in the gallbladder. ERCP performed in the radiology department was negative. 1. Based on the above history and physical findings, I would be hard pressed to tell the patient he has a recurrent biliary colic. This may be more of a GI upset from other reasons; however, looking at the ultrasound and the CT scan, the patient indeed has common bile duct dilatation, yet the ERCP did not reveal any obstruction either by calculi or any mass. The patient could have very small stones and sludge that is slowly descending through the common duct and causing problems, so it is not inconceivable to recommend laparoscopic cholecystectomy at this point. In addition, the patient will get a HIDA scan. 2. As far as the patient's swallowing problem, clearly he will need an upper endoscopy to evaluate the integrity of the esophagus. The majority of patients with these symptoms have either slight dysphagia due to some neurologic problem, but most of the time it is continuous and frequent gastroesophageal reflux that causes inflammatory changes in the esophagus and mucosal and epithelial changes that will lead either to replacement with columnar epithelium in the form of an early Foreman's esophagus or simply fibrous strictures. All of these will lead to dysphagia and a feeling of food sticking in the esophagus. Clearly, less common but more serious could be malignancies of the esophagus. Therefore the patient definitely needs upper endoscopy and biopsies prior to doing any other surgery because if any of this is positive, then the gallbladder may be put on the back burner. At this point, I have ordered the HIDA scan and I will await results of the upper endoscopy and then will have a full picture to decide what to do with this gentleman. Thank you very much for the referral. I will continue to follow the patient. Lalitha CANO /4:57 PM /9:18 PM
--- NOTE | 2016-12-02 22:42 | EKG ---
Date Performed: 12/02/2016 Time Performed: 01:44:49 PTAGE: 46 years EKG: Sinus rhythm MARKED LEFT AXIS DEVIATION ABNORMAL ECG PREVIOUS TRACING : 12/01/2016 19.36 DOCTOR: Geena Brown Interpretating Date/Time 12/02/2016 22:40:21
--- NOTE | 2016-12-02 22:48 | EKG ---
Date Performed: 12/01/2016 Time Performed: 19:36:28 PTAGE: 46 years EKG: Sinus rhythm . Left axis deviation Abnormal ECG NO PREVIOUS TRACING DOCTOR: Geena Brown Interpretating Date/Time 12/02/2016 22:44:50
[2016-12-03] MEDS: ONDANSETRON HCL 4 MG/2 ML VIAL IVP PRN ×2 (02:31→14:30)
[2016-12-03] MEDS: HYDROmorphone HCL PF 1 MG/ML VIAL IV PUSH PRN ×5 (02:31→21:54)
[2016-12-03 04:00] VITALS: BP 109/69; PULSE 57; RESP 18; TEMP 98.5; O2SAT 95
[2016-12-03] MEDS: SODIUM CHLOR 0.9% 1000 ML INJ 1,000 ML IV SCH ×2 (04:18→16:53)
[2016-12-03 05:26] LABS: INDIRECT BILIRUBIN 0.5 MG/DL (0.0-0.8); TOTAL BILIRUBIN ADULT 0.7 MG/DL (0.2-1.0)
[2016-12-03 07:55] VITALS: O2SAT 97
[2016-12-03 08:28] VITALS: BP 115/65; PULSE 70; RESP 18; TEMP 98; O2SAT 98
[2016-12-03] MEDS: clonazePAM 1 MG TAB PO SCH ×2 (08:58→21:09)
[2016-12-03] MEDS: PANTOPRAZOLE SODIUM 40 MG VIAL IV PUSH SCH ×2 (08:59→21:09)
[2016-12-03] MEDS: SODIUM CHLORIDE 0.9% FLUSH 5 ML FLUSH FLUSH SCH ×2 (09:00→21:09)
--- NOTE | 2016-12-03 09:12 | HHI.PR ---
Subjective Remarks looks and feels much more comfortable. abdominal pain has improved. no nausea/ vomiting today. d/w the RN. Objective Vitals Vital Signs Date Time Temp Pulse Resp B/P Pulse Ox O2 Delivery O2 Flow Rate FiO2 12/03/16 08:28 98.0 70 18 115/65 98 12/03/16 07:55 97 21 12/03/16 06:48 18 12/03/16 04:00 98.5 57 18 109/69 95 12/02/16 19:40 98.8 54 16 139/80 95 12/02/16 13:16 98.0 53 16 148/95 96 Room Air 12/02/16 13:00 54 12 167/108 96 12/02/16 13:00 97.4 52 18 174/88 96 12/02/16 12:48 98.0 67 12 127/83 98 Nasal Cannula 2 12/02/16 11:00 97.5 57 19 119/72 96 12/02/16 10:19 16 I/O 12/02/16 12/02/16 12/02/16 12/03/16 12/03/16 12/03/16 07:00 15:00 23:00 07:00 15:00 23:00 Intake Total 1800 ml Output Total 700 ml 1000 ml Balance 1100 ml -1000 ml Intake IV Total 1800 ml Output Urine Total 700 ml 1000 ml # Voids 2 # Bowel Movements 1 Result Diagram: 12/02/16 0914 12/02/16 0914 Imaging Last Impressions Gall Bladder Ultrasound 12/02/16 0000 Signed Impressions: Service Date/Time: Friday, December 02, 2016 08:23 - CONCLUSION: Debris in the gallbladder with dilated common duct. PT and Armaan Roman MD FACR GI Procedure 12/02/16 0000 Signed Impressions: Service Date/Time: Friday, December 02, 2016 12:33 - CONCLUSION: ERCP as above. Emanuel Hall MD Chest X-Ray 12/01/161999 Signed Impressions: Service Date/Time: November 20:13 - CONCLUSION: No evidence of acute cardiopulmonary disease. Vik Bartlett MD Abdomen/Pelvis CT 12/01/161999 Signed Impressions: Service Date/Time: November 22:05 - CONCLUSION: 1. Distended common bile duct and with questionable stones in the distal duct and also in the gallbladder. The nothing by CT to suggest acute cholecystitis. Right upper quadrant ultrasound recommended. 2. No other acute abnormality demonstrated. Vik Bartlett MD Objective Remarks GENERAL: This is a well-nourished, well-developed patient, in no apparent distress. CARDIOVASCULAR: Regular rate and regular rhythm without murmurs, gallops, or rubs. RESPIRATORY: Clear to auscultation. Breath sounds equal bilaterally. No wheezes , rales, or rhonchi. GASTROINTESTINAL: Abdomen soft, non-tender, nondistended. Normal, active bowel sounds MUSCULOSKELETAL: Extremities without clubbing, cyanosis, or edema. NEURO: Alert & Oriented x4 to person, place, time, situation. Moves all ext x4 Procedures ERCP Medications and IVs Current Medications Ondansetron HCl (Zofran Inj) 4 mg ONCE ONCE IVP Last administered on 20:19; Start 12/01/16 at 20:00; Stop 12/01/16 at 20:04; Status DC Pantoprazole Sodium 40 mg 40 mg ONCE ONCE IVP Last administered on 12/01/16 20:19; Start 12/01/16 at 20:00; Stop 12/01/16 at 20:04; Status DC Sodium Chloride (NS 1000 ml Inj) 1,000 ml @ 125 mls/hr Q8H IV Last administered on 12/01/16 20:19; Start 12/01/16 at 20:00; Stop 12/02/16 at 03:59 ; Status DC IV Flush (NS Flush) 2 ml UNSCH PRN IVF FLUSH AFTER USING IV ACCESS; Start 12/01 at 20:00; Stop 12/01/16 at 23:37; Status DC Diatrizoate Meglum/ Diatrizoate Sod 18 ml 18 ml STK-MED ONCE .ROUTE Last administered on 12/01/16 20:44; Start 12/01/16 at 20:27; Stop 12/01/16 at 20:28 ; Status DC Sodium Chloride (NS 1000 ml Inj) 1,000 ml @ 999 mls/hr BOLUS ONCE IV Last administered on 12/01/16 21:00; Start 12/01/16 at 21:00; Stop 12/01/16 at 22:00 ; Status DC Ondansetron HCl (Zofran Inj) 4 mg ONCE ONCE IV PUSH Last administered on 21:05; Start 12/01/16 at 21:00; Stop 12/01/16 at 21:01; Status DC Morphine Sulfate (Morphine Inj) 2 mg ONCE ONCE IV PUSH Last administered on 21:05; Start 12/01/16 at 21:00; Stop 12/01/16 at 21:01; Status DC Iohexol 100 ml 100 ml STK-MED ONCE IV Last administered on 12/01/16 22:18; Start 12/01/16 at 22:18; Stop 12/01/16 at 22:19; Status DC Sodium Chloride (NS 1000 ml Inj) 1,000 ml @ 100 mls/hr Q10H IV Last administered on 12/02/16 05:18; Start 12/01/16 at 23:30 IV Flush (NS Flush) 2 ml UNSCH PRN FLUSH FLUSH AFTER USING IV ACCESS; Start at 23:30 IV Flush (NS Flush) 2 ml BID FLUSH ; Start 12/02/16 at 09:00 Ondansetron HCl (Zofran Inj) 4 mg Q6H PRN IVP NAUSEA OR VOMITING Last administered on 12/03/16 02:31; Start 12/01/16 at 23:30 Temazepam (Restoril) 15 mg HS PRN PO INSOMNIA Last administered on 12/01/16 23 :53; Start 12/01/16 at 23:30 Naloxone HCl (Narcan Inj) 0.4 mg UNSCH PRN IV SEE LABEL COMMENTS; Start at 23:30 IV Flush (NS Flush) 2 ml BID IVF ; Start 12/02/16 at 09:00; Stop 12/02/16 at 09: 00; Status DC IV Flush (NS Flush) 2 ml UNSCH PRN IVF FLUSH AFTER USING IV ACCESS; Start 12/01 at 23:45; Stop 12/01/16 at 23:58; Status DC Morphine Sulfate (Morphine Inj) 2 mg Q3H PRN IV PUSH PAIN GREATER THAN 5 Last administered on 12/02/16 06:15; Start 12/02/16 at 06:15; Stop 12/02/16 at 07:58 ; Status DC Hydromorphone HCl (Dilaudid Pf Inj) 1 mg Q3HR PRN IV PUSH PAIN > 4; Start 12/02 at 08:00; Stop 12/02/16 at 08:08; Status DC Clonazepam (KlonoPIN) 1 mg BID PO Last administered on 12/02/16 20:26; Start 12/02/16 at 09:00 Hydromorphone HCl (Dilaudid Pf Inj) 1 mg Q3HR PRN IV PUSH PAIN > 4 Last administered on 12/03/16 05:32; Start 12/02/16 at 12:00 Hydromorphone HCl (Dilaudid Pf Inj) 0.5 mg ONCE ONCE IV PUSH Last administered on 12/02/16 09:21; Start 12/02/16 at 09:00; Stop 12/02/16 at 09:01 ; Status DC Pantoprazole Sodium (Protonix Inj) 40 mg Q12H IV PUSH Last administered on 12/02 20:26; Start 12/02/16 at 10:00 Hydromorphone HCl (*DILAUDID PF INJ PERIprocedural ONLY) 1 mg STK-MED ONCE .ROUTE Last administered on 12/02/16 13:13; Start 12/02/16 at 13:11; Stop at 13:12; Status DC Miscellaneous Information ALL NURSING DEPARTME... UNSCH PRN XX SEE LABEL COMMENTS; Start 12/02/16 at 12:49; Stop 12/03/16 at 12:48 Iohexol (OMNIPAQUE 300 INJ (Rad CT)) 100 ml STK-MED ONCE OTHER Last administered on 12/02/16 12:25; Start 12/02/16 at 12:25; Stop 12/02/16 at 13:56 ; Status DC Propofol (Diprivan 200 Mg/20 ml Inj) 500 mg STK-MED ONCE IV ; Start 12/02/16 at 12:23; Stop 12/02/16 at 14:00; Status DC A/P Assessment and Plan - abdominal pain with questionable choledocholithiasis s/p ERCP with normal biliary tree- HIDA pending- GI and surgery following. continue with pain control. Discharge Planning awaiting surgery recommendations. Matteo Ramos MD Dec 03, 2016 09:12
--- NOTE | 2016-12-03 11:29 | HHI.GIFU ---
Subjective Remarks Resting in bed. States he was requiring his pain meds last night, but feeling better today. Going for HIDA today per recommendations. (Demetria Humphries) Objective Vitals I&O Vital Signs Date Time Temp Pulse Resp B/P Pulse Ox O2 Delivery O2 Flow Rate FiO2 12/03/16 08:28 98.0 70 18 115/65 98 12/03/16 07:55 97 21 12/03/16 06:48 18 12/03/16 04:00 98.5 57 18 109/69 95 12/02/16 19:40 98.8 54 16 139/80 95 12/02/16 13:16 98.0 53 16 148/95 96 Room Air 12/02/16 13:00 54 12 167/108 96 12/02/16 13:00 97.4 52 18 174/88 96 12/02/16 12:48 98.0 67 12 127/83 98 Nasal Cannula 2 I/O 12/02/16 12/02/16 12/02/16 12/03/16 12/03/16 12/03/16 07:00 15:00 23:00 07:00 15:00 23:00 Intake Total 1800 ml Output Total 700 ml 1000 ml Balance 1100 ml -1000 ml Intake IV Total 1800 ml Output Urine Total 700 ml 1000 ml # Voids 2 # Bowel Movements 1 Laboratory Laboratory Tests Test 12/03/16 04:13 Total Bilirubin 0.7 Direct Bilirubin 0.2 Indirect Bilirubin 0.5 Aspartate Amino Transf 25 (AST/SGOT) Alanine Aminotransferase 48 (ALT/SGPT) Alkaline Phosphatase 88 Total Protein 6.1 Albumin 3.1 Imaging Last Impressions Gall Bladder Ultrasound 12/02/16 0000 Signed Impressions: Service Date/Time: Friday, December 02, 2016 08:23 - CONCLUSION: Debris in the gallbladder with dilated common duct. PT and Armaan Roman MD FACR GI Procedure 12/02/16 0000 Signed Impressions: Service Date/Time: Friday, December 02, 2016 12:33 - CONCLUSION: ERCP as above. Emanuel Hall MD Chest X-Ray 12/01/161999 Signed Impressions: Service Date/Time: November 20:13 - CONCLUSION: No evidence of acute cardiopulmonary disease. Vik Bartlett MD Abdomen/Pelvis CT 12/01/161999 Signed Impressions: Service Date/Time: November 22:05 - CONCLUSION: 1. Distended common bile duct and with questionable stones in the distal duct and also in the gallbladder. The nothing by CT to suggest acute cholecystitis. Right upper quadrant ultrasound recommended. 2. No other acute abnormality demonstrated. Vik Bartlett MD Physical Exam HEENT: Normocephalic; atraumatic; no jaundice. CHEST: CTA CARDIAC: RRR ABDOMEN: Soft, nondistended, nontender; no hepatosplenomegaly; bowel sounds are present in all four quadrants. EXTREMITIES: No clubbing, cyanosis, or edema. SKIN: Normal; no rash; no jaundice. PRODUCT MARKETING INTERN: No focal deficits; alert and oriented times three. (Demetria Humphries) Assessment and Plan Plan ASSESSMENT: - Cholelithiasis, Suspected Choledocholithiasis. Abdomen/Pelvis CT (12/01/16)--- --> 1. Distended common bile duct and with questionable stones in the distal duct and also in the gallbladder. The nothing by CT to suggest acute cholecystitis. Right upper quadrant ultrasound recommended. 2. No other acute abnormality demonstrated. RUQ US report pending, but CBD 9mm with stone in CBD per tech. Labs unremarkable. S/P ERCP (12/03/16)---> biliary tree appeared normal with no evidence of stones or filling defects. ? Passed stone. LFT okay. GS consulted for cholecystectomy---> ordered HIDA. - Epigastric pain, dysphagia, odynophagia. Symptoms x 1 year, worse over 5 months. C/O severe epigastric/lower esophageal pain and food/liquids getting caught with initial bite/swallow, states after this, he is able to eat without issues. Happens every time he goes to eat. Also with frequent epigastric burning, belching. Has tried Pepto-Bismol, Zantac, Imodium, Mylanta without results. He reports the only thing that has helped is FD Guard. ERCP unremarkable for EGD. PPI. Improved. - Abnormal weight loss, 14 lb weight loss over the past 3 months - Black stool. States he had a FORMED black stool followed by 2 loose brown stools mixed with black stool. He was taking Pepto-Bismol at that time. PLAN: - NPO for HIDA - Cont. PPI - GS consulted for lap. cholecystectomy - HIDA ordered by GS - okay for regular diet from gi standpoint once cleared by GS - Supportive care - Further recommendations to follow based on results of above - Pt seen and examined by Dr. Ro and myself and this note is written on his behalf (Demetria Humphries) Physician Comments Seen and examined with Ms. Kristel CARRASQUILLO, doing well. HIDA shows normal Gall bladder but delayed emptying from CBD. Ampulla was very tight on ERCP, sphincterotomy was performed. LFTs remain normal. Will hold off on repeat ercp unless obstructive symptoms occur. Advised to fu in gi clinic upon dc. ( Darleen Ro MD) Demetria Humphries Dec 03, 2016 11:29 Darleen Ro MD Dec 03, 2016 16:57
[2016-12-03 12:01] VITALS: BP 108/58; PULSE 50; RESP 20; TEMP 97.9; O2SAT 95
--- NOTE | 2016-12-03 13:04 | PD.CAR.PN ---
CVT Progress Note Subjective/Hospital Course: Patient seen full consult dictated Thanks J 12/03/16 1. Based on the history and physical findings, I would be hard pressed to tell the patient he has a recurrent biliary colic. This may be more of a GI upset from other reasons; however, looking at the ultrasound and the CT scan, the patient indeed has common bile duct dilatation, yet the ERCP did not reveal any obstruction either by calculi or any mass. The patient could have very small stones and sludge that is slowly descending through the common duct and causing problems, so it is not inconceivable to recommend laparoscopic cholecystectomy at this point. In addition, the patient will get a HIDA scan. 2. As far as the patient's swallowing problem, clearly he will need an upper endoscopy to evaluate the integrity of the esophagus. The majority of patients with these symptoms have either slight dysphagia due to some neurologic problem, but most of the time it is continuous and frequent gastroesophageal reflux that causes inflammatory changes in the esophagus and mucosal and epithelial changes that will lead either to replacement with columnar epithelium in the form of an early Foreman's esophagus or simply fibrous strictures. All of these will lead to dysphagia and a feeling of food sticking in the esophagus. Clearly, less common but more serious could be malignancies of the esophagus. Therefore the patient definitely needs upper endoscopy and biopsies prior to doing any other surgery because if any of this is positive, then the gallbladder may be put on the back burner. At this point, I have ordered the HIDA scan and I will await results of the upper endoscopy and then will have a full picture to decide what to do with this gentleman. Objective: Vital Signs Date Time Temp Pulse Resp B/P Pulse Ox O2 Delivery O2 Flow Rate FiO2 12/03/16 12:01 97.9 50 20 108/58 95 12/03/16 08:28 98.0 70 18 115/65 98 12/03/16 07:55 97 21 12/03/16 06:48 18 12/03/16 04:00 98.5 57 18 109/69 95 12/02/16 19:40 98.8 54 16 139/80 95 12/02/16 13:16 98.0 53 16 148/95 96 Room Air Labs: Laboratory Tests Test 12/03/16 04:13 Total Bilirubin 0.7 MG/DL (0.2-1.0) Direct Bilirubin 0.2 MG/DL (0.0-0.2) Indirect Bilirubin 0.5 MG/DL (0.0-0.8) Aspartate Amino Transf 25 U/L (15-37) (AST/SGOT) Alanine Aminotransferase 48 U/L (12-78) (ALT/SGPT) Alkaline Phosphatase 88 U/L (45-117) Total Protein 6.1 GM/DL (6.4-8.2) Albumin 3.1 GM/DL (3.4-5.0) Result Diagram: 12/02/16 0914 12/02/16 0914 Lalitha Amaral MD Dec 03, 2016 13:04
[2016-12-03] MEDS ORDERED: SINCALIDE 5 MCG/5 ML VIAL IV ONE (13:30)
--- NOTE | 2016-12-03 15:32 | RADRPT ---
EXAM DATE/TIME: 12/03/2016 12:22 [facility] COMPARISON: CT ABDOMEN & PELVIS W CONTRAST, December 01, 2016, 22:05. US ABDOMEN - GALLBLADDER, December 02, 2016, 8:23. GI LAB ERCP, December 02, 2016, 12:33. INDICATIONS : Abdominal epigastric pain for 5 months, has gotten worse over past few days. Presents with nausea , vomitting, fever and chills. DOSE: 4.1 mCi Tc99m Mebrofenin IV MEDICATION: 1.5 mcg Cholecystokinin IV; No symptomatic response. Cholecystokinin was administered by slow infusion over 8 minutes beginning at 60 minutes. MEDICAL HISTORY : Gastroesophageal reflux disease. SURGICAL HISTORY : None. ENCOUNTER: Initial ACUITY: 4 - 6 months PAIN SCALE: 5/10 LOCATION: Abdomen. TECHNIQUE: Following the intravenous administration of radiotracer, dynamic sequential image were performed with continuous acquisition. Time-activity curves were generated. FINDINGS: HEPATIIC KINETICS: There is prompt uptake of radiotracer in the liver. No focal defects are seen. There is normal rate of washout from the hepatic parenchyma. BILIARY CLEARANCE: Activity is first seen in the extrahepatic biliary system at 20 minutes. There is clearing minimal s mall bowel activity seen at the end of the study. GALLBLADDER: Activity is first seen in the gallbladder at 30 minutes. POST CHOLECYSTOKININ: After Cholecystokinin administration, no significant emptying of the gallbladder is seen. BILIARY ENTERIC REFLUX: None observed. CLINICAL: The patient was asymptomatic after Cholecystokinin administration. CONCLUSION: Very minimal activity extends in to the small bowel concerning for a high grade obstruction at the le khoa of the ampulla. In reviewing the patient's prior CT and ERCP, there is a question of stones in th e distal duct on the common bile duct on the CT examination. There could be stones packed in the dist al common bile duct on ERCP with contrast not delineated them in the very distal common bile duct. No contrast is seen in the small bowel on the ERCP. Vik Harvey MD on December 03, 2016 at 15:14 Board Certified Radiologist. This report was verified electronically.
[2016-12-03 16:33] VITALS: BP 170/95; PULSE 60; RESP 18; TEMP 97; O2SAT 96
[2016-12-03] MEDS ORDERED: HYDROmorphone HCL PF 1 MG/ML VIAL IV PUSH ONE (16:45)
[2016-12-03] MEDS: PROMETHAZINE INJ 25 MG/ML VIAL IM PRN (17:45)
[2016-12-03 20:03] VITALS: BP 109/59; PULSE 71; RESP 20; TEMP 97.7; O2SAT 94
[2016-12-04] VITALS: BP 106/48; PULSE 55; RESP 17; TEMP 97.2; O2SAT 98
[2016-12-04] MEDS: SODIUM CHLOR 0.9% 1000 ML INJ 1,000 ML IV SCH ×3 (01:14→22:54)
[2016-12-04] MEDS: ONDANSETRON HCL 4 MG/2 ML VIAL IVP PRN ×4 (02:01→20:36)
[2016-12-04] MEDS: HYDROmorphone HCL PF 1 MG/ML VIAL IV PUSH PRN ×7 (02:02→22:54)
[2016-12-04] MEDS: PROMETHAZINE INJ 25 MG/ML VIAL IM PRN (07:42)
[2016-12-04] MEDS: SODIUM CHLORIDE 0.9% FLUSH 5 ML FLUSH FLUSH SCH ×2 (07:42→20:47)
[2016-12-04 08:00] VITALS: BP 156/92; PULSE 67; RESP 18; TEMP 96.7; O2SAT 98
--- NOTE | 2016-12-04 08:42 | HHI.PR ---
Subjective Remarks in no distress. complaining of abdominal pain and nausea. no fever. d/w the RN. Objective Vitals Vital Signs Date Time Temp Pulse Resp B/P Pulse Ox O2 Delivery O2 Flow Rate FiO2 12/04/16 08:00 96.7 67 18 156/92 98 12/04/16 00:00 97.2 55 17 106/48 98 12/03/16 20:03 97.7 71 20 109/59 94 12/03/16 16:33 97.0 60 18 170/95 96 12/03/16 12:01 97.9 50 20 108/58 95 I/O 12/03/16 12/03/16 12/03/16 12/04/16 12/04/16 12/04/16 07:00 15:00 23:00 07:00 15:00 23:00 Intake Total 550 ml Output Total 1000 ml 50 ml Balance -1000 ml -50 ml 550 ml Intake Oral 0 ml IV Total 550 ml Output Urine Total 1000 ml Emesis 50 ml # Voids 2 # Bowel Movements 1 1 Result Diagram: 12/02/16 0914 12/02/16 0914 Imaging Last Impressions Hepatobiliary Scan Nuclear Medicine 12/03/16 0000 Signed Impressions: Service Date/Time: Saturday, December 03, 2016 12:22 - CONCLUSION: Very minimal activity extends in to the small bowel concerning for a high grade obstruction at the level of the ampulla. In reviewing the patient's prior CT and ERCP, there is a question of stones in the distal duct on the common bile duct on the CT examination. There could be stones packed in the distal common bile duct on ERCP with contrast not delineated them in the very distal common bile duct. No contrast is seen in the small bowel on the ERCP. Vik Harvey MD Gall Bladder Ultrasound 12/02/16 0000 Signed Impressions: Service Date/Time: Friday, December 02, 2016 08:23 - CONCLUSION: Debris in the gallbladder with dilated common duct. PT and Armaan Roman MD FACR GI Procedure 12/02/16 0000 Signed Impressions: Service Date/Time: Friday, December 02, 2016 12:33 - CONCLUSION: ERCP as above. Emanuel Hall MD Chest X-Ray 12/01/161999 Signed Impressions: Service Date/Time: November 20:13 - CONCLUSION: No evidence of acute cardiopulmonary disease. Vik Bartlett MD Abdomen/Pelvis CT 12/01/161999 Signed Impressions: Service Date/Time: November 22:05 - CONCLUSION: 1. Distended common bile duct and with questionable stones in the distal duct and also in the gallbladder. The nothing by CT to suggest acute cholecystitis. Right upper quadrant ultrasound recommended. 2. No other acute abnormality demonstrated. Vik Bartlett MD Objective Remarks GENERAL: This is a well-nourished, well-developed patient, in no apparent distress. CARDIOVASCULAR: Regular rate and regular rhythm without murmurs, gallops, or rubs. RESPIRATORY: Clear to auscultation. Breath sounds equal bilaterally. No wheezes , rales, or rhonchi. GASTROINTESTINAL: Abdomen soft, non-tender, nondistended. Normal, active bowel sounds MUSCULOSKELETAL: Extremities without clubbing, cyanosis, or edema. NEURO: Alert & Oriented x4 to person, place, time, situation. Moves all ext x4 Procedures ERCP Medications and IVs Current Medications Ondansetron HCl (Zofran Inj) 4 mg ONCE ONCE IVP Last administered on 20:19; Start 12/01/16 at 20:00; Stop 12/01/16 at 20:04; Status DC Pantoprazole Sodium 40 mg 40 mg ONCE ONCE IVP Last administered on 12/01/16 20:19; Start 12/01/16 at 20:00; Stop 12/01/16 at 20:04; Status DC Sodium Chloride (NS 1000 ml Inj) 1,000 ml @ 125 mls/hr Q8H IV Last administered on 12/01/16 20:19; Start 12/01/16 at 20:00; Stop 12/02/16 at 03:59 ; Status DC IV Flush (NS Flush) 2 ml UNSCH PRN IVF FLUSH AFTER USING IV ACCESS; Start 12/01 at 20:00; Stop 12/01/16 at 23:37; Status DC Diatrizoate Meglum/ Diatrizoate Sod 18 ml 18 ml STK-MED ONCE .ROUTE Last administered on 12/01/16 20:44; Start 12/01/16 at 20:27; Stop 12/01/16 at 20:28 ; Status DC Sodium Chloride (NS 1000 ml Inj) 1,000 ml @ 999 mls/hr BOLUS ONCE IV Last administered on 12/01/16 21:00; Start 12/01/16 at 21:00; Stop 12/01/16 at 22:00 ; Status DC Ondansetron HCl (Zofran Inj) 4 mg ONCE ONCE IV PUSH Last administered on 21:05; Start 12/01/16 at 21:00; Stop 12/01/16 at 21:01; Status DC Morphine Sulfate (Morphine Inj) 2 mg ONCE ONCE IV PUSH Last administered on 21:05; Start 12/01/16 at 21:00; Stop 12/01/16 at 21:01; Status DC Iohexol 100 ml 100 ml STK-MED ONCE IV Last administered on 12/01/16 22:18; Start 12/01/16 at 22:18; Stop 12/01/16 at 22:19; Status DC Sodium Chloride (NS 1000 ml Inj) 1,000 ml @ 100 mls/hr Q10H IV Last administered on 12/04/16 01:14; Start 12/01/16 at 23:30 IV Flush (NS Flush) 2 ml UNSCH PRN FLUSH FLUSH AFTER USING IV ACCESS; Start at 23:30 IV Flush (NS Flush) 2 ml BID FLUSH Last administered on 12/03/16 21:09; Start 12/02/16 at 09:00 Ondansetron HCl (Zofran Inj) 4 mg Q6H PRN IVP NAUSEA OR VOMITING Last administered on 12/04/16 06:47; Start 12/01/16 at 23:30 Temazepam (Restoril) 15 mg HS PRN PO INSOMNIA Last administered on 12/01/16 23 :53; Start 12/01/16 at 23:30 Naloxone HCl (Narcan Inj) 0.4 mg UNSCH PRN IV SEE LABEL COMMENTS; Start at 23:30 IV Flush (NS Flush) 2 ml BID IVF ; Start 12/02/16 at 09:00; Stop 12/02/16 at 09: 00; Status DC IV Flush (NS Flush) 2 ml UNSCH PRN IVF FLUSH AFTER USING IV ACCESS; Start 12/01 at 23:45; Stop 12/01/16 at 23:58; Status DC Morphine Sulfate (Morphine Inj) 2 mg Q3H PRN IV PUSH PAIN GREATER THAN 5 Last administered on 12/02/16 06:15; Start 12/02/16 at 06:15; Stop 12/02/16 at 07:58 ; Status DC Hydromorphone HCl (Dilaudid Pf Inj) 1 mg Q3HR PRN IV PUSH PAIN > 4; Start 12/02 at 08:00; Stop 12/02/16 at 08:08; Status DC Clonazepam (KlonoPIN) 1 mg BID PO Last administered on 12/03/16 21:09; Start 12/02/16 at 09:00 Hydromorphone HCl (Dilaudid Pf Inj) 1 mg Q3HR PRN IV PUSH PAIN > 4 Last administered on 12/04/16 06:47; Start 12/02/16 at 12:00 Hydromorphone HCl (Dilaudid Pf Inj) 0.5 mg ONCE ONCE IV PUSH Last administered on 12/02/16 09:21; Start 12/02/16 at 09:00; Stop 12/02/16 at 09:01 ; Status DC Pantoprazole Sodium (Protonix Inj) 40 mg Q12H IV PUSH Last administered on 12/03 21:09; Start 12/02/16 at 10:00 Hydromorphone HCl (*DILAUDID PF INJ PERIprocedural ONLY) 1 mg STK-MED ONCE .ROUTE Last administered on 12/02/16 13:13; Start 12/02/16 at 13:11; Stop at 13:12; Status DC Miscellaneous Information ALL NURSING DEPARTME... UNSCH PRN XX SEE LABEL COMMENTS; Start 12/02/16 at 12:49; Stop 12/03/16 at 12:48; Status DC Iohexol (OMNIPAQUE 300 INJ (Rad CT)) 100 ml STK-MED ONCE OTHER Last administered on 12/02/16 12:25; Start 12/02/16 at 12:25; Stop 12/02/16 at 13:56 ; Status DC Propofol (Diprivan 200 Mg/20 ml Inj) 500 mg STK-MED ONCE IV ; Start 12/02/16 at 12:23; Stop 12/02/16 at 14:00; Status DC Sincalide (Kinevac Inj) 1.5 mcg STK-MED ONCE IV Last administered on 12/03/16 13:30; Start 12/03/16 at 13:30; Stop 12/03/16 at 13:31; Status DC Hydromorphone HCl (Dilaudid Pf Inj) 0.5 mg NOW ONCE IV PUSH Last administered on 12/03/16 16:52; Start 12/03/16 at 16:45; Stop 12/03/16 at 16:46; Status DC Promethazine HCl (Phenergan Inj) 12.5 mg Q8H PRN IM NAUSEA Last administered on 12/04/16 07:42; Start 12/03/16 at 17:00 A/P Assessment and Plan - abdominal pain with questionable choledocholithiasis s/p ERCP with normal biliary tree- HIDA with possible high-grade obstruction at the level of ampulla. continue with pain control and antiemetics as needed. GI and surgery following. Discharge Planning when ok with surgery. f/u by GI as outpatient. Matteo Ramos MD Dec 04, 2016 08:42
[2016-12-04] MEDS: clonazePAM 1 MG TAB PO SCH ×2 (09:00→20:35)
[2016-12-04] MEDS: PANTOPRAZOLE SODIUM 40 MG VIAL IV PUSH SCH ×2 (09:08→20:35)
[2016-12-04] MEDS: SODIUM CHLORIDE 0.9% FLUSH 5 ML FLUSH FLUSH PRN ×4 (09:09→18:57)
[2016-12-04] MEDS: PROCHLORPERAZINE INJ 10 MG/2 ML VIAL IVS PRN (11:29)
[2016-12-04 12:00] VITALS: BP 159/96; PULSE 64; RESP 17; TEMP 98.1; O2SAT 100
--- NOTE | 2016-12-04 14:45 | PD.CAR.PN ---
CVT Progress Note Subjective/Hospital Course: Patient seen full consult dictated Thanks [place] 12/03/16 1. Based on the history and physical findings, I would be hard pressed to tell the patient he has a recurrent biliary colic. This may be more of a GI upset from other reasons; however, looking at the ultrasound and the CT scan, the patient indeed has common bile duct dilatation, yet the ERCP did not reveal any obstruction either by calculi or any mass. The patient could have very small stones and sludge that is slowly descending through the common duct and causing problems, so it is not inconceivable to recommend laparoscopic cholecystectomy at this point. In addition, the patient will get a HIDA scan. 2. As far as the patient's swallowing problem, clearly he will need an upper endoscopy to evaluate the integrity of the esophagus. The majority of patients with these symptoms have either slight dysphagia due to some neurologic problem, but most of the time it is continuous and frequent gastroesophageal reflux that causes inflammatory changes in the esophagus and mucosal and epithelial changes that will lead either to replacement with columnar epithelium in the form of an early Foreman's esophagus or simply fibrous strictures. All of these will lead to dysphagia and a feeling of food sticking in the esophagus. Clearly, less common but more serious could be malignancies of the esophagus. Therefore the patient definitely needs upper endoscopy and biopsies prior to doing any other surgery because if any of this is positive, then the gallbladder may be put on the back burner. At this point, I have ordered the HIDA scan and I will await results of the upper endoscopy and then will have a full picture to decide what to do with this gentleman. 12/04/16 I have discussed the care and the entire situation with coin machine supervisor At this point the patient does have dilated common bile duct and there is delayed excretion of tracer into the intestine on HIDA scan Gallbladder on the other hand appears to be normal with normal contractions and no gallstones It is conceivable that patient has some small stones or sludge packed into distal common duct but this is rather unlikely. 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 Therefore based on all the above I believe the best course of therapy is to perform sphincterotomy and see how the patient does At this point I do not have any indication to remove the gallbladder which appears to be normal and not containing any stones If patient should have symptoms in the future then we can reconsider may replacing a stent in the common duct and crossing the papilla and the same time doing laparoscopic cholecystectomy but that this time I do not see any reason to subject patient to laparoscopic cholecystectomy or any other surgery Objective: Vital Signs Date Time Temp Pulse Resp B/P Pulse Ox O2 Delivery O2 Flow Rate FiO2 12/04/16 12:43 16 12/04/16 12:00 98.1 64 17 159/96 100 12/04/16 08:00 96.7 67 18 156/92 98 12/04/16 00:00 97.2 55 17 106/48 98 12/03/16 20:03 97.7 71 20 109/59 94 12/03/16 16:33 97.0 60 18 170/95 96 Result Diagram: 12/02/16 0914 12/02/1614 Lalitha Amaral MD Dec 04, 2016 14:45
[2016-12-04 16:00] VITALS: BP 101/59; PULSE 62; RESP 17; TEMP 98.1; O2SAT 98
[2016-12-05] VITALS: BP 99/70; PULSE 55; RESP 20; TEMP 97.6; O2SAT 96
[2016-12-05] MEDS: HYDROmorphone HCL PF 1 MG/ML VIAL IV PUSH PRN ×4 (02:07→12:16)
[2016-12-05 04:00] VITALS: BP 105/60; PULSE 51; RESP 20; TEMP 97.7; O2SAT 95
[2016-12-05] MEDS: SODIUM CHLOR 0.9% 1000 ML INJ 1,000 ML IV SCH (04:45)
[2016-12-05] MEDS: PROCHLORPERAZINE INJ 10 MG/2 ML VIAL IVS PRN (06:03)
[2016-12-05 08:00] VITALS: BP 112/72; PULSE 57; RESP 16; TEMP 97.7; O2SAT 98
--- NOTE | 2016-12-05 09:04 | HHI.PR ---
Subjective Remarks has mild abdominal pain. nausea is much better today. Objective Vitals Vital Signs Date Time Temp Pulse Resp B/P Pulse Ox O2 Delivery O2 Flow Rate FiO2 12/05/16 08:00 97.7 57 16 112/72 98 12/05/16 04:00 97.7 51 20 105/60 95 12/05/16 03:12 16 12/05/16 00:00 97.6 55 20 99/70 96 12/04/16 16:00 98.1 62 17 101/59 98 12/04/16 12:00 98.1 64 17 159/96 100 I/O 12/04/16 12/04/16 12/04/16 12/05/16 12/05/16 12/05/16 07:00 15:00 23:00 07:00 15:00 23:00 Intake Total 550 ml 1671 ml 659 ml 0 ml Output Total 800 ml 250 ml Balance 550 ml 871 ml 409 ml 0 ml Intake Oral 0 ml 840 ml 240 ml 0 ml IV Total 550 ml 831 ml 419 ml Output Urine Total 800 ml 250 ml # Voids 2 1 # Bowel Movements 1 2 Result Diagram: 12/02/16 0914 12/02/16 0914 Imaging Last Impressions Hepatobiliary Scan Nuclear Medicine 12/03/16 0000 Signed Impressions: Service Date/Time: Saturday, December 03, 2016 12:22 - CONCLUSION: Very minimal activity extends in to the small bowel concerning for a high grade obstruction at the level of the ampulla. In reviewing the patient's prior CT and ERCP, there is a question of stones in the distal duct on the common bile duct on the CT examination. There could be stones packed in the distal common bile duct on ERCP with contrast not delineated them in the very distal common bile duct. No contrast is seen in the small bowel on the ERCP. Vik Harvey MD Gall Bladder Ultrasound 12/02/16 0000 Signed Impressions: Service Date/Time: Friday, December 02, 2016 08:23 - CONCLUSION: Debris in the gallbladder with dilated common duct. PT and Armaan Roman MD FACR GI Procedure 12/02/16 0000 Signed Impressions: Service Date/Time: Friday, December 02, 2016 12:33 - CONCLUSION: ERCP as above. Emanuel Hall MD Chest X-Ray 12/01/161999 Signed Impressions: Service Date/Time: November 20:13 - CONCLUSION: No evidence of acute cardiopulmonary disease. Vik Bartlett MD Abdomen/Pelvis CT 12/01/161999 Signed Impressions: Service Date/Time: November 22:05 - CONCLUSION: 1. Distended common bile duct and with questionable stones in the distal duct and also in the gallbladder. The nothing by CT to suggest acute cholecystitis. Right upper quadrant ultrasound recommended. 2. No other acute abnormality demonstrated. Vik Bartlett MD Objective Remarks GENERAL: This is a well-nourished, well-developed patient, in no apparent distress. CARDIOVASCULAR: Regular rate and regular rhythm without murmurs, gallops, or rubs. RESPIRATORY: Clear to auscultation. Breath sounds equal bilaterally. No wheezes , rales, or rhonchi. GASTROINTESTINAL: Abdomen soft, non-tender, nondistended. Normal, active bowel sounds MUSCULOSKELETAL: Extremities without clubbing, cyanosis, or edema. NEURO: Alert & Oriented x4 to person, place, time, situation. Moves all ext x4 Procedures ERCP Medications and IVs Current Medications Ondansetron HCl (Zofran Inj) 4 mg ONCE ONCE IVP Last administered on 20:19; Start 12/01/16 at 20:00; Stop 12/01/16 at 20:04; Status DC Pantoprazole Sodium 40 mg 40 mg ONCE ONCE IVP Last administered on 12/01/16 20:19; Start 12/01/16 at 20:00; Stop 12/01/16 at 20:04; Status DC Sodium Chloride (NS 1000 ml Inj) 1,000 ml @ 125 mls/hr Q8H IV Last administered on 12/01/16 20:19; Start 12/01/16 at 20:00; Stop 12/02/16 at 03:59 ; Status DC IV Flush (NS Flush) 2 ml UNSCH PRN IVF FLUSH AFTER USING IV ACCESS; Start 12/01 at 20:00; Stop 12/01/16 at 23:37; Status DC Diatrizoate Meglum/ Diatrizoate Sod 18 ml 18 ml STK-MED ONCE .ROUTE Last administered on 12/01/16 20:44; Start 12/01/16 at 20:27; Stop 12/01/16 at 20:28 ; Status DC Sodium Chloride (NS 1000 ml Inj) 1,000 ml @ 999 mls/hr BOLUS ONCE IV Last administered on 12/01/16 21:00; Start 12/01/16 at 21:00; Stop 12/01/16 at 22:00 ; Status DC Ondansetron HCl (Zofran Inj) 4 mg ONCE ONCE IV PUSH Last administered on 21:05; Start 12/01/16 at 21:00; Stop 12/01/16 at 21:01; Status DC Morphine Sulfate (Morphine Inj) 2 mg ONCE ONCE IV PUSH Last administered on 21:05; Start 12/01/16 at 21:00; Stop 12/01/16 at 21:01; Status DC Iohexol 100 ml 100 ml STK-MED ONCE IV Last administered on 12/01/16 22:18; Start 12/01/16 at 22:18; Stop 12/01/16 at 22:19; Status DC Sodium Chloride (NS 1000 ml Inj) 1,000 ml @ 100 mls/hr Q10H IV Last administered on 12/05/16 04:45; Start 12/01/16 at 23:30 IV Flush (NS Flush) 2 ml UNSCH PRN FLUSH FLUSH AFTER USING IV ACCESS Last administered on 12/04/16 18:57; Start 12/01/16 at 23:30 IV Flush (NS Flush) 2 ml BID FLUSH Last administered on 12/04/16 20:47; Start 12/02/16 at 09:00 Ondansetron HCl (Zofran Inj) 4 mg Q6H PRN IVP NAUSEA OR VOMITING Last administered on 12/04/16 20:36; Start 12/01/16 at 23:30 Temazepam (Restoril) 15 mg HS PRN PO INSOMNIA Last administered on 12/01/16 23 :53; Start 12/01/16 at 23:30 Naloxone HCl (Narcan Inj) 0.4 mg UNSCH PRN IV SEE LABEL COMMENTS; Start at 23:30 IV Flush (NS Flush) 2 ml BID IVF ; Start 12/02/16 at 09:00; Stop 12/02/16 at 09: 00; Status DC IV Flush (NS Flush) 2 ml UNSCH PRN IVF FLUSH AFTER USING IV ACCESS; Start 12/01 at 23:45; Stop 12/01/16 at 23:58; Status DC Morphine Sulfate (Morphine Inj) 2 mg Q3H PRN IV PUSH PAIN GREATER THAN 5 Last administered on 12/02/16 06:15; Start 12/02/16 at 06:15; Stop 12/02/16 at 07:58 ; Status DC Hydromorphone HCl (Dilaudid Pf Inj) 1 mg Q3HR PRN IV PUSH PAIN > 4; Start 12/02 at 08:00; Stop 12/02/16 at 08:08; Status DC Clonazepam (KlonoPIN) 1 mg BID PO Last administered on 12/04/16 20:35; Start 12/02/16 at 09:00 Hydromorphone HCl (Dilaudid Pf Inj) 1 mg Q3HR PRN IV PUSH PAIN > 4 Last administered on 12/04/16 06:47; Start 12/02/16 at 12:00; Stop 12/04/16 at 08:44 ; Status DC Hydromorphone HCl (Dilaudid Pf Inj) 0.5 mg ONCE ONCE IV PUSH Last administered on 12/02/16 09:21; Start 12/02/16 at 09:00; Stop 12/02/16 at 09:01 ; Status DC Pantoprazole Sodium (Protonix Inj) 40 mg Q12H IV PUSH Last administered on 12/04 20:35; Start 12/02/16 at 10:00 Hydromorphone HCl (*DILAUDID PF INJ PERIprocedural ONLY) 1 mg STK-MED ONCE .ROUTE Last administered on 12/02/16 13:13; Start 12/02/16 at 13:11; Stop at 13:12; Status DC Miscellaneous Information ALL NURSING DEPARTME... UNSCH PRN XX SEE LABEL COMMENTS; Start 12/02/16 at 12:49; Stop 12/03/16 at 12:48; Status DC Iohexol (OMNIPAQUE 300 INJ (Rad CT)) 100 ml STK-MED ONCE OTHER Last administered on 12/02/16 12:25; Start 12/02/16 at 12:25; Stop 12/02/16 at 13:56 ; Status DC Propofol (Diprivan 200 Mg/20 ml Inj) 500 mg STK-MED ONCE IV ; Start 12/02/16 at 12:23; Stop 12/02/16 at 14:00; Status DC Sincalide (Kinevac Inj) 1.5 mcg STK-MED ONCE IV Last administered on 12/03/16 13:30; Start 12/03/16 at 13:30; Stop 12/03/16 at 13:31; Status DC Hydromorphone HCl (Dilaudid Pf Inj) 0.5 mg NOW ONCE IV PUSH Last administered on 12/03/16 16:52; Start 12/03/16 at 16:45; Stop 12/03/16 at 16:46; Status DC Promethazine HCl (Phenergan Inj) 12.5 mg Q8H PRN IM NAUSEA Last administered on 12/04/16 07:42; Start 12/03/16 at 17:00; Stop 12/04/16 at 08:44; Status DC Hydromorphone HCl (Dilaudid Pf Inj) 1.5 mg Q3HR PRN IV PUSH PAIN > 4 Last administered on 12/05/16 06:04; Start 12/04/16 at 08:45 Prochlorperazine Edisylate (Compazine Inj) 5 mg Q8H PRN IVS NAUSEA Last administered on 12/05/16 06:03; Start 12/04/16 at 08:45 A/P Assessment and Plan - abdominal pain with questionable choledocholithiasis s/p ERCP with normal biliary tree- HIDA with possible high-grade obstruction at the level of ampulla. continue with pain control and antiemetics as needed. surgery follow-up appreciated; no indication for cholecystectomy at this time. GI following. Discharge Planning cleared by GI and surgery. dc home. f/u by pcp and GI. see med list. d/w the patient and his family in detail. d/w the RN. d/w GI. d/w time spent 37 min. Matteo Ramos MD Dec 05, 2016 09:04
[2016-12-05] MEDS: clonazePAM 1 MG TAB PO SCH (09:18)
[2016-12-05] MEDS: PANTOPRAZOLE SODIUM 40 MG VIAL IV PUSH SCH (09:18)
[2016-12-05] MEDS: SODIUM CHLORIDE 0.9% FLUSH 5 ML FLUSH FLUSH SCH (09:18)
--- NOTE | 2016-12-05 11:47 | HHI.GIFU ---
Subjective Remarks States he is feeling better. Still having pain, but controlled and much improved. Tolerated breakfast- had eggs, toast, and banana. He would like to go home. Objective Vitals I&O Vital Signs Date Time Temp Pulse Resp B/P Pulse Ox O2 Delivery O2 Flow Rate FiO2 12/05/16 08:00 97.7 57 16 112/72 98 12/05/16 04:00 97.7 51 20 105/60 95 12/05/16 03:12 16 12/05/16 00:00 97.6 55 20 99/70 96 12/04/16 16:00 98.1 62 17 101/59 98 12/04/16 12:00 98.1 64 17 159/96 100 I/O 12/04/16 12/04/16 12/04/16 12/05/16 12/05/16 12/05/16 07:00 15:00 23:00 07:00 15:00 23:00 Intake Total 550 ml 1671 ml 659 ml 0 ml Output Total 800 ml 250 ml Balance 550 ml 871 ml 409 ml 0 ml Intake Oral 0 ml 840 ml 240 ml 0 ml IV Total 550 ml 831 ml 419 ml Output Urine Total 800 ml 250 ml # Voids 2 1 # Bowel Movements 1 2 Imaging Last Impressions Hepatobiliary Scan Nuclear Medicine 12/03/16 0000 Signed Impressions: Service Date/Time: Saturday, December 03, 2016 12:22 - CONCLUSION: Very minimal activity extends in to the small bowel concerning for a high grade obstruction at the level of the ampulla. In reviewing the patient's prior CT and ERCP, there is a question of stones in the distal duct on the common bile duct on the CT examination. There could be stones packed in the distal common bile duct on ERCP with contrast not delineated them in the very distal common bile duct. No contrast is seen in the small bowel on the ERCP. Vik Harvey MD Gall Bladder Ultrasound 12/02/16 0000 Signed Impressions: Service Date/Time: Friday, December 02, 2016 08:23 - CONCLUSION: Debris in the gallbladder with dilated common duct. PT and Armaan Roman MD FACR GI Procedure 12/02/16 0000 Signed Impressions: Service Date/Time: Friday, December 02, 2016 12:33 - CONCLUSION: ERCP as above. Emanuel Hall MD Chest X-Ray 12/01/161999 Signed Impressions: Service Date/Time: November 20:13 - CONCLUSION: No evidence of acute cardiopulmonary disease. Vik Bartlett MD Abdomen/Pelvis CT 12/01/161999 Signed Impressions: Service Date/Time: November 22:05 - CONCLUSION: 1. Distended common bile duct and with questionable stones in the distal duct and also in the gallbladder. The nothing by CT to suggest acute cholecystitis. Right upper quadrant ultrasound recommended. 2. No other acute abnormality demonstrated. Vik Bartlett MD Physical Exam HEENT: Normocephalic; atraumatic; no jaundice. CHEST: CTA CARDIAC: RRR ABDOMEN: Soft, nondistended, NONtender; no hepatosplenomegaly; bowel sounds are present in all four quadrants. EXTREMITIES: No clubbing, cyanosis, or edema. SKIN: Normal; no rash; no jaundice. DIVISION ROADMASTER: No focal deficits; alert and oriented times three. Assessment and Plan Plan ASSESSMENT: - Cholelithiasis, Suspected Choledocholithiasis. Abdomen/Pelvis CT (12/01/16)--- --> 1. Distended common bile duct and with questionable stones in the distal duct and also in the gallbladder. The nothing by CT to suggest acute cholecystitis. Right upper quadrant ultrasound recommended. 2. No other acute abnormality demonstrated. RUQ US report pending, but CBD 9mm with stone in CBD per tech. Labs unremarkable. S/P ERCP (12/03/16)---> biliary tree appeared normal with no evidence of stones or filling defects, s/p sphincterotomy/papillotomy. HIDA (12/03/16)----> Very minimal activity extends in to the small bowel concerning for a high grade obstruction at the level of the ampulla. In reviewing the patient's prior CT and ERCP, there is a question of stones in the distal duct on the common bile duct on the CT examination. There could be stones packed in the distal common bile duct on ERCP with contrast not delineated them in the very distal common bile duct. No contrast is seen in the small bowel on the ERCP. Clinically improved. LFTs have been normal. Tolerating diet. GS following. Consider cholecystectomy if he has repeat occurrence. - Epigastric pain, dysphagia, odynophagia. Symptoms x 1 year, worse over 5 months. C/O severe epigastric/lower esophageal pain and food/liquids getting caught with initial bite/swallow, states after this, he is able to eat without issues. Happens every time he goes to eat. Also with frequent epigastric burning, belching. Has tried Pepto-Bismol, Zantac, Imodium, Mylanta without results. He reports the only thing that has helped is FD Guard. ERCP unremarkable for EGD. Much improved with protonix. - Abnormal weight loss, 14 lb weight loss over the past 3 months - Black stool. States he had a FORMED black stool followed by 2 loose brown stools mixed with black stool. He was taking Pepto-Bismol at that time. PLAN: - Low fat diet - Cont. Protonix - FU JAZMIN 2 weeks - Okay to d/c home from GI standpoint - Pt seen and examined by Dr. Kidd and myself and this note is written on her behalf Demetria Humphries Dec 05, 2016 11:47
[2016-12-05] MEDS ORDERED: PROT40TA PO (12:00)
[2016-12-05] MEDS ORDERED: PROC5TAB PO (12:00)
[2016-12-05] MEDS ORDERED: NORC5TAB PO (12:00)
--- NOTE | 2016-12-05 12:01 | HHI.DCPOC ---
Discharge Care Plan Diagnosis: (1) Abdominal pain (2) Vomiting and diarrhea Additional Problems abdominal pain/ nausea/vomiting. Goals to Promote Your Health * To prevent worsening of your condition and complications * To maintain your health at the optimal level Directions to Meet Your Goals Take your medications as prescribed Follow your dietary instruction Follow activity as directed Keep your appointments as scheduled Take your immunizations and boosters as scheduled If your symptoms worsen call your PCP, if no PCP go to Urgent Care Center or Emergency Room Smoking is Dangerous to Your Health. Avoid second hand smoke Call the 24-hour hour crisis hotline for domestic abuse at Matteo Ramos MD Dec 05, 2016 12:01
--- NOTE | 2016-12-05 12:02 | HHI.DS ---
Discharge Summary Admission Date Dec 01, 2016 at 23:37 Discharge Date: Dec 05, 2016 Admitting Diagnosis choledocholithiasis (1) Choledocholithiasis ICD Code: K80.50 Diagnosis: Principal (2) Abdominal pain ICD Code: R10.9 Diagnosis: Principal Procedures ERCP Brief History - From Admission patient is a 46 y/o male with history of colitis in the past presented to ER with abdominal pain. he says that he's had this pain for the past few months. pain is more or less generalized . he says that the pain started to get worse few days ago. pain is associated with nausea and vomiting. he says that he had some fever and chills at home. the pain didn't improve as much with the Morphine that he earlier received. CBC/BMP: 12/02/16 0914 12/02/16 0914 Significant Findings Laboratory Tests Test 12/03/16 04:13 Total Protein 6.1 GM/DL (6.4-8.2) Albumin 3.1 GM/DL (3.4-5.0) Imaging Last Impressions Hepatobiliary Scan Nuclear Medicine 12/03/16 0000 Signed Impressions: Service Date/Time: Saturday, December 03, 2016 12:22 - CONCLUSION: Very minimal activity extends in to the small bowel concerning for a high grade obstruction at the level of the ampulla. In reviewing the patient's prior CT and ERCP, there is a question of stones in the distal duct on the common bile duct on the CT examination. There could be stones packed in the distal common bile duct on ERCP with contrast not delineated them in the very distal common bile duct. No contrast is seen in the small bowel on the ERCP. Vik Harvey MD Gall Bladder Ultrasound 12/02/16 0000 Signed Impressions: Service Date/Time: Friday, December 02, 2016 08:23 - CONCLUSION: Debris in the gallbladder with dilated common duct. PT and Armaan Roman MD FACR GI Procedure 12/02/16 0000 Signed Impressions: Service Date/Time: Friday, December 02, 2016 12:33 - CONCLUSION: ERCP as above. Emanuel Hall MD Chest X-Ray 12/01/161999 Signed Impressions: Service Date/Time: November 20:13 - CONCLUSION: No evidence of acute cardiopulmonary disease. Vik Bartlett MD Abdomen/Pelvis CT 12/01/161999 Signed Impressions: Service Date/Time: November 22:05 - CONCLUSION: 1. Distended common bile duct and with questionable stones in the distal duct and also in the gallbladder. The nothing by CT to suggest acute cholecystitis. Right upper quadrant ultrasound recommended. 2. No other acute abnormality demonstrated. Vik Bartlett MD PE at Discharge GENERAL: This is a well-nourished, well-developed patient, in no apparent distress. CARDIOVASCULAR: Regular rate and regular rhythm without murmurs, gallops, or rubs. RESPIRATORY: Clear to auscultation. Breath sounds equal bilaterally. No wheezes , rales, or rhonchi. GASTROINTESTINAL: Abdomen soft, non-tender, nondistended. Normal, active bowel sounds MUSCULOSKELETAL: Extremities without clubbing, cyanosis, or edema. NEURO: Alert & Oriented x4 to person, place, time, situation. Moves all ext x4 Hospital Course - abdominal pain with questionable choledocholithiasis s/p ERCP with normal biliary tree- HIDA with possible high-grade obstruction at the level of ampulla. continue with pain control and antiemetics as needed. surgery follow-up appreciated; no indication for cholecystectomy at this time. cleared by GI for discharge. Pt Condition on Discharge: Fair Discharge Disposition: Discharge Home Discharge Time: > 30 minutes Discharge Instructions DIET: Follow Instructions for: Heart Healthy Diet, Low Fat Diet Activities you can perform: Regular-No Restrictions Follow up Referrals: Gastroenterology PCP Follow-up New Medications: Hydrocodone-Acetaminophen ([place]) 5-325 mg Tab 1 TAB PO Q6H PRN PAIN #15 Ref 0 TAB Pantoprazole (Protonix) 40 Mg Tab 40 MG PO DAILY Reflux #30 Ref 0 TAB Prochlorperazine Maleate (Prochlorperazine Maleate) 5 Mg Tab 5 MG PO Q8HR PRN NAUSEA OR VOMITING #10 Ref 0 TAB Continued Medications: Clonazepam (Klonopin) 1 Mg Tab 1 MG PO BID #60 Ref 0 TAB ([FDgard]) Matteo Ramos MD Dec 05, 2016 12:02
[2016-12-05] MEDS ORDERED: CLON1 PO (12:52)
--- NOTE | 2016-12-05 22:58 | EKG ---
Date Performed: 12/02/2016 Time Performed: 17:34:31 PTAGE: 46 years EKG: SINUS BRADYCARDIA MARKED LEFT AXIS DEVIATION ABNORMAL ECG Compared to the PREVIOUS TRACING from 12/02/16, no significant change DOCTOR: Tank Palma Interpretating Date/Time 12/05/2016 22:56:16
== END 2016-12-05 14:07 | disposition home or self-care (01) | DRG 446 ==
LOC: PHED 19:06 → PHEDA 23:37 → OBSVTOIN 23:37 → NEPGCP 12-02 01:35 → HOCB 12-02 13:02 → NEDH 12-02 13:36 → NEDA 12-02 13:39 → NEPGCP 12-02 14:08 → N06A 12-03 23:01 → N07B 12-04 01:53
PROVIDERS: ADMIT Internal Medicine; ATTEND Internal Medicine
DX: K80.70 Calculus of gallbladder and bile duct without cholecystitis without obstruction (principal); R13.10 Dysphagia, unspecified; F17.210 Nicotine dependence, cigarettes, uncomplicated; F12.90 Cannabis use, unspecified, uncomplicated; K21.9 Gastro-esophageal reflux disease without esophagitis; F43.23 Adjustment disorder with mixed anxiety and depressed mood
CPT/HCPCS: 71010; 74177; 74330; 76705; 78227; 80053; 80076; 81001; 83690; 84484; 85025; 93005; 96361; 96374; 96375; 96376; A9537; C1769; C9113; J0780; J1170; J2270; J2405; J2550; J2805; J7030; Q9963; Q9967

== ENCOUNTER 2017-03-15 07:35 | Emergency (ER) | payer OTHER ==
[~2017-03-15] VITALS: Ht 175.3 cm; Wt 77.0 kg
[~2017-03-15 07:35] MED LIST changes: +CLON1 PO; +FDGARD; -METH40TA PO; +NORC5TAB PO; +PROC5TAB PO; -PROM25TA5 PO; +PROT40TA PO
[2017-03-15 07:43] VITALS: BP 142/93; PULSE 113; RESP 18; TEMP 98.5; O2SAT 98
[2017-03-15] MEDS ORDERED: METH10TA PO (07:43)
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
[2017-03-15] MEDS ORDERED: ONDANSETRON ODT 4 MG TAB PO ONE (08:45)
--- NOTE | 2017-03-15 09:11 | RADHPO ---
EXAM DATE/TIME: 03/15/2017 08:07 [facility] COMPARISON: CHEST SINGLE AP, December 01, 2016, 20:13. INDICATIONS : Chest pain. MEDICAL HISTORY : None. SURGICAL HISTORY : None. ENCOUNTER: Initial ACUITY: 3 days PAIN SCORE: 8/10 LOCATION: Bilateral chest FINDINGS: PA and lateral views of the chest demonstrate the lungs to be symmetrically aerated without evidence of mass, infiltrate or effusion. The cardiomediastinal contours are unremarkable. Osseous structure s are intact. CONCLUSION: No acute disease. Vik Daniel MD on March 15, 2017 at 9:08 Board Certified Radiologist. This report was verified electronically.
--- NOTE | 2017-03-15 10:26 | EKG ---
Date Performed: 03/15/2017 Time Performed: 07:37:58 PTAGE: 47 years EKG: Sinus tachycardia. Left axis deviation Abnormal ECG PREVIOUS TRACING : 12/02/2016 17.34 DOCTOR: Haris Mondragon Interpretating Date/Time 03/15/2017 10:25:50
== END 2017-03-15 08:53 | disposition home or self-care (01) ==
LOC: PHED 07:35
DX: R07.89 Other chest pain (principal); J02.9 Acute pharyngitis, unspecified; F17.210 Nicotine dependence, cigarettes, uncomplicated; R00.0 Tachycardia, unspecified
CPT/HCPCS: 71020; 93005; 99285